=== PATIENT | male | born 1955 | race Caucasian/White ===

== ENCOUNTER 2025-01-18 08:58 | Emergency (ER) | payer SELFPAY ==
--- NOTE | 2025-01-18 | CT_ITS ---
The [address] [address] Patient Name: TERRY MERIDA MRN: [id number] date: 1955 Sex: M Assigned Patient Location: ER Current Patient Location: Accession/Order Number: [id number] Exam Date: 01/18/2025 09:35 Report Date: 01/18/2025 09:48 At the request of: BALDEMAR ELIZONDO MD Procedure: CT facial bones wo con CLINICAL DATA: Crush injury at work CT BRAIN WITHOUT CONTRAST: COMPARISON: None TECHNIQUE: Contiguous axial unenhanced images were obtained through the brain. This CT exam was performed using one or more following dose reduction techniques: Automated exposure control, adjustment of the mA and/or kV according to patient size, or use of iterative reconstruction technique. FINDINGS: Patient is slightly angled within the gantry. There is mild cortical atrophy. The ventricles are within normal limits for size and position. There are no significant areas of abnormal attenuation. There is no hemorrhage, mass effect or extra-axial collections. The calvarium is intact. There is left maxillary mucosal thickening. The remaining imaged paranasal sinuses and mastoid air cells are clear. CT/CT facial bones wo con IMPRESSION: NO ACUTE INTRACRANIAL TRAUMA. MAXILLOFACIAL CT WITHOUT CONTRAST: COMPARISON: None TECHNIQUE: Spiral axial unenhanced images were obtained through the facial bones. Coronal and sagittal reconstructions were also reviewed. This CT exam was performed using one or more following dose reduction techniques: Automated exposure control, adjustment of the mA and/or kV according to patient size, or use of iterative reconstruction technique. FINDINGS: Patient is angled in the gantry. The mandible is edentulous. There is a transverse fracture at the anterior mandible on the left. There may be minimal comminution however there are is no significant displacement. The temporomandibular joints, as visualized appear intact though there is mild degenerative change. No other definite acute facial bone fractures are identified within limits of positioning. There is mucosal thickening at the maxillary sinuses, greater on the left. The remaining paranasal sinuses are clear. No fluid levels are seen. No mastoid disease is visualized. The intraorbital contents are unremarkable. There is poor dentition with periapical lucency around the upper molars on the left along with caries. IMPRESSION: SLIGHTLY LIMITED EVALUATION DUE TO POSITIONING. LEFT MANDIBLE FRACTURE Impression dictated by: Jo-Ann Delcid M.D. 01/18/2025 9:48 AM Dictation Location: [place] [address] Electronically authenticated by: [id number] Y Date: 01/18/2025 09:48
--- NOTE | 2025-01-18 | CT_ITS ---
The [address] [address] Patient Name: TERRY MERIDA MRN: [id number] date: 1955 Sex: M Assigned Patient Location: ER Current Patient Location: Accession/Order Number: [id number] Exam Date: 01/18/2025 09:48 Report Date: 01/18/2025 10:05 At the request of: BALDEMAR ELIZONDO MD Procedure: CT cervical spine wo con CT CERVICAL SPINE WITHOUT CONTRAST WITH 3D RECONSTRUCTIONS: CLINICAL HISTORY: Crush injury at work COMPARISON: None TECHNIQUE: Spiral axial unenhanced images were obtained through the cervical spine. Sagittal, coronal and 3D volume-rendered reconstructions were also reviewed. This CT exam was performed using one or more following dose reduction techniques: Automated exposure control, adjustment of the mA and/or kV according to patient size, or use of iterative reconstruction technique. FINDINGS: Patient is angled in the gantry, limiting assessment. There is no definite acute compression fracture. There does appear to be fracture at the left transverse process of C7. There is widening of the disc space anteriorly at C6-7 and this could indicate ligamentous injury. Bilateral foraminal impingement is present at that level. There is no other disproportionate disc space narrowing. There is endplate spurring and facet hypertrophy. The atlantoaxial relationship is maintained. There are at least first and second proximal right rib fractures. No prevertebral soft tissue swelling is seen. Carotid artery plaque is noted. No pneumothorax is identified at the upper lungs. Minor apical capping is seen on the right. CT/CT cervical spine wo con IMPRESSION: POOR POSITIONING, LIMITING ASSESSMENT. LEFT C7 TRANSVERSE PROCESS FRACTURE. WIDENING OF THE DISC SPACE ANTERIORLY AT C6-7. FOLLOW-UP IS RECOMMENDED TO EXCLUDE ANY POSSIBILITY OF LIGAMENTOUS INJURY. RIGHT UPPER RIB FRACTURES. Impression dictated by: Jo-Ann Delcid M.D. 01/18/2025 10:05 AM Dictation Location: [place] [address] Electronically authenticated by: [id number] Y Date: 01/18/2025 10:05
--- NOTE | 2025-01-18 | XR_ITS ---
The [address] [address] Patient Name: TERRY MERIDA MRN: [id number] date: 1955 Sex: M Assigned Patient Location: ER Current Patient Location: ED.MAIN Accession/Order Number: [id number] Exam Date: 01/18/2025 09:30 Report Date: 01/18/2025 09:35 At the request of: BALDEMAR ELIZONDO MD Procedure: XR pelvis 1-2V CLINICAL DATA: Crush injury at work PORTABLE AP RECUMBENT CHEST 0848 hours COMPARISON: None There is artifact from a backboard. There is also shallow inspiration. Patient is slightly rotated. The heart appears prominent. No focal consolidation is seen. There is no obvious effusion or pneumothorax. The visualized bony structures are intact. XR/XR pelvis 1-2V IMPRESSION: SLIGHT LIMITED STUDY, WITHOUT DEFINITE ACUTE FINDINGS. PORTABLE AP PELVIS COMPARISON: None There is artifact from a backboard. There are bilateral superior and inferior pubic rami fractures with some comminution and mild displacement. There are also fractures involving the iliac crests on both sides. The proximal imaged femora are intact. There is no dislocation at the hips. The hip joint spaces are maintained and there is hypertrophy, left worse than right. IMPRESSION: BILATERAL ILIAC AND PUBIC RAMI FRACTURES. FOLLOW-UP CT IS SUGGESTED TO FULLY ASSESS THE EXTENT OF THE FRACTURES. Impression dictated by: Jo-Ann Delcid M.D. 01/18/2025 9:35 AM Dictation Location: [place] [address] Electronically authenticated by: [id number] Y Date: 01/18/2025 09:35
--- NOTE | 2025-01-18 | XR_ITS ---
The [address] [address] Patient Name: TERRY MERIDA MRN: [id number] date: 1955 Sex: M Assigned Patient Location: ER Current Patient Location: ED.MAIN Accession/Order Number: [id number] Exam Date: 01/18/2025 09:30 Report Date: 01/18/2025 09:35 At the request of: BALDEMAR ELIZONDO MD Procedure: XR pelvis 1-2V CLINICAL DATA: Crush injury at work PORTABLE AP RECUMBENT CHEST 0848 hours COMPARISON: None There is artifact from a backboard. There is also shallow inspiration. Patient is slightly rotated. The heart appears prominent. No focal consolidation is seen. There is no obvious effusion or pneumothorax. The visualized bony structures are intact. XR/XR chest 1V IMPRESSION: SLIGHT LIMITED STUDY, WITHOUT DEFINITE ACUTE FINDINGS. PORTABLE AP PELVIS COMPARISON: None There is artifact from a backboard. There are bilateral superior and inferior pubic rami fractures with some comminution and mild displacement. There are also fractures involving the iliac crests on both sides. The proximal imaged femora are intact. There is no dislocation at the hips. The hip joint spaces are maintained and there is hypertrophy, left worse than right. IMPRESSION: BILATERAL ILIAC AND PUBIC RAMI FRACTURES. FOLLOW-UP CT IS SUGGESTED TO FULLY ASSESS THE EXTENT OF THE FRACTURES. Impression dictated by: Jo-Ann Delcid M.D. 01/18/2025 9:35 AM Dictation Location: [place] [address] Electronically authenticated by: [id number] Y Date: 01/18/2025 09:35
--- NOTE | 2025-01-18 | CT_ITS ---
The [address] [address] Patient Name: TERRY MERIDA MRN: [id number] date: 1955 Sex: M Assigned Patient Location: ER Current Patient Location: Accession/Order Number: [id number] Exam Date: 01/18/2025 09:35 Report Date: 01/18/2025 09:48 At the request of: BALDEMAR ELIZONDO MD Procedure: CT facial bones wo con CLINICAL DATA: Crush injury at work CT BRAIN WITHOUT CONTRAST: COMPARISON: None TECHNIQUE: Contiguous axial unenhanced images were obtained through the brain. This CT exam was performed using one or more following dose reduction techniques: Automated exposure control, adjustment of the mA and/or kV according to patient size, or use of iterative reconstruction technique. FINDINGS: Patient is slightly angled within the gantry. There is mild cortical atrophy. The ventricles are within normal limits for size and position. There are no significant areas of abnormal attenuation. There is no hemorrhage, mass effect or extra-axial collections. The calvarium is intact. There is left maxillary mucosal thickening. The remaining imaged paranasal sinuses and mastoid air cells are clear. CT/CT head/brain wo con IMPRESSION: NO ACUTE INTRACRANIAL TRAUMA. MAXILLOFACIAL CT WITHOUT CONTRAST: COMPARISON: None TECHNIQUE: Spiral axial unenhanced images were obtained through the facial bones. Coronal and sagittal reconstructions were also reviewed. This CT exam was performed using one or more following dose reduction techniques: Automated exposure control, adjustment of the mA and/or kV according to patient size, or use of iterative reconstruction technique. FINDINGS: Patient is angled in the gantry. The mandible is edentulous. There is a transverse fracture at the anterior mandible on the left. There may be minimal comminution however there are is no significant displacement. The temporomandibular joints, as visualized appear intact though there is mild degenerative change. No other definite acute facial bone fractures are identified within limits of positioning. There is mucosal thickening at the maxillary sinuses, greater on the left. The remaining paranasal sinuses are clear. No fluid levels are seen. No mastoid disease is visualized. The intraorbital contents are unremarkable. There is poor dentition with periapical lucency around the upper molars on the left along with caries. IMPRESSION: SLIGHTLY LIMITED EVALUATION DUE TO POSITIONING. LEFT MANDIBLE FRACTURE Impression dictated by: Jo-Ann Delcid M.D. 01/18/2025 9:48 AM Dictation Location: [place] [address] Electronically authenticated by: [id number] Y Date: 01/18/2025 09:48
[2025-01-18 08:58] VITALS: BP 115/75; PULSE 85; O2SAT 95; BMI 64.3
[2025-01-18 09:06] VITALS: O2SAT 96
--- NOTE | 2025-01-18 09:07 | PC.NURSE ---
blood coming from left ear, pt alert with some short term memory problems reported by EMS. Pt to be transferred Via life flight
[2025-01-18] MEDS: MORPHINE SULFATE 4 MG/ML VIAL IV (09:16)
[2025-01-18] MEDS: ONDANSETRON PF 4 MG/2 ML VIAL IV (09:16)
[2025-01-18 09:19] VITALS: BP 125/78
[2025-01-18 09:24] VITALS: BP 114/74
[2025-01-18] MEDS: CEFAZOLIN SODIUM/DEXTROSE,ISO 1 GM/50 ML PREMIX IV (09:27)
--- NOTE | 2025-01-18 09:35 | ED.GENADUL1 ---
HPI HPI - General Adult General Chief complaint: Trauma Stated complaint: INJURY Time Seen by Provider: 01/18/25 09:20 Source: patient Mode of arrival: ambulance History of Present Illness HPI narrative: 70-year-old male presents for trauma event. Most of the history is obtained from the paramedics, some from the patient. 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 He was found laying on the ground but bystanders reported he lost consciousness. The patient is complaining of pain in his lower back and the left side of his face. This occurred immediately before coming into the emergency department. It is unclear when his last tetanus dose was but this was updated today. He was transported here on a long backboard and c-collar by paramedics. He was noted to be somewhat diaphoretic. He describes his pain is severe. Related Data Allergies Allergy/AdvReac Type Severity Reaction Status Date / Time Unable to Assess Allergy Verified 01/18/25 09:00 Review of Systems ROS Narrative Not obtainable, acuity of situation Exam Narrative Exam Narrative: Nurses note and vital signs reviewed and patient is not hypoxic. General: The patient is on a long backboard and c-collar. He is answering questions and following all commands Skin: Warm, diaphoretic, mild pallor noted. He has superficial abrasion to his right knee. He has speckled indentations on the left side of his chest consistent with laying on gravel. Head: He has swelling and large abrasion to the left side of his face partially covered by the c-collar and tape. He has blood at his left ear but it is not clear whether this is coming from the wound on his face or from the ear itself. Eye: Normal conjunctiva, no drainage, EOMI. PERRL Ears, Nose, Mouth, and Throat: oral mucosa is moist. Nares patent. Cardiovascular: Regular Rate and Rhythm, not tachycardic Respiratory: Patient is in no distress, no accessory muscle use, lungs are clear to auscultation, no wheezing, rales or rhonchi. Breath sounds are equal bilaterally. He has no crepitus on palpation nor any pain on palpation of the chest wall. Back: Not examined, on long backboard and c-collar GI: No distention or tenderness on palpation Musculoskeletal: He is moving all 4 extremities to command. Initially he did not seem to have any pain on rocking of his pelvis Neurological: A&O x4, normal speech Psychiatric: Cooperative Constitutional Vital Signs, click to edit/add: Last Vital Signs Pulse 85 01/18/25 08:58 Resp 20 01/18/25 08:58 BP 114/74 01/18/25 09:24 Pulse Ox 96 01/18/25 09:06 O2 Del Method Room Air 01/18/25 09:06 Course Vital Signs Vital signs: Vital Signs Pulse Rate 85 01/18/25 08:58 Respiratory Rate 20 01/18/25 08:58 Blood Pressure 115/75 01/18/25 08:58 Pulse Oximetry 95 01/18/25 08:58 Oxygen Delivery Method Room Air 01/18/25 08:58 Pulse Rate 85 01/18/25 08:58 Respiratory Rate 20 01/18/25 08:58 Blood Pressure 114/74 01/18/25 09:24 Pulse Oximetry 96 01/18/25 09:06 Oxygen Delivery Method Room Air 01/18/25 09:06 Medical Decision Making MDM Narrative Medical decision making narrative: Paramedics at the scene had requested [facility] and instead of [facility] meeting them at the scene [facility] crew came here and landed on our helipad. The patient arrived here a short amount of time before the life flight crew landed. Portable chest x-ray was performed which on my interpretation showed no acute findings. Portable pelvis x-ray was performed which when I had a chance to review it shows right inferior and superior pelvic ramus fractures and probable left inferior pubic ramus fracture. The patient continued to complain of low back pain and he will very likely need additional studies to further explore his injuries. He was taken to the CT suite to perform studies. CT of the brain, C-spine, and facial bones were performed and the initial interpretation by me shows a left mandible fracture. He remained hemodynamically stable. Tetanus status was updated and he was ordered IV Ancef. I spoke to Dr. Seaman at [facility], trauma surgeon, and he accepts the patient. The patient is stable and agreeable for transfer. Differential Diagnosis Differential Diagnosis: Intracranial hemorrhage, facial fractures, C-spine fracture, pelvic fx Imaging Data Chest x-ray, CT C-spine, CT brain, CT facial bones, pelvic x-ray: Radiologist's impression: ITS Impressions Chest X-Ray 01/18/25 00:00 IMPRESSION: SLIGHT LIMITED STUDY, WITHOUT DEFINITE ACUTE FINDINGS. PORTABLE AP PELVIS COMPARISON: None There is artifact from a backboard. There are bilateral superior and inferior pubic rami fractures with some comminution and mild displacement. There are also fractures involving the iliac crests on both sides. The proximal imaged femora are intact. There is no dislocation at the hips. The hip joint spaces are maintained and there is hypertrophy, left worse than right. IMPRESSION: BILATERAL ILIAC AND PUBIC RAMI FRACTURES. FOLLOW-UP CT IS SUGGESTED TO FULLY ASSESS THE EXTENT OF THE FRACTURES. Impression dictated by: Jo-Ann Delcid M.D. 01/18/2025 9:35 AM Dictation Location: [employer] Electronically authenticated by: [id number] Y Date: 01/18/2025 09:35 Pelvis X-Ray 01/18/25 00:00 IMPRESSION: SLIGHT LIMITED STUDY, WITHOUT DEFINITE ACUTE FINDINGS. PORTABLE AP PELVIS COMPARISON: None There is artifact from a backboard. There are bilateral superior and inferior pubic rami fractures with some comminution and mild displacement. There are also fractures involving the iliac crests on both sides. The proximal imaged femora are intact. There is no dislocation at the hips. The hip joint spaces are maintained and there is hypertrophy, left worse than right. IMPRESSION: BILATERAL ILIAC AND PUBIC RAMI FRACTURES. FOLLOW-UP CT IS SUGGESTED TO FULLY ASSESS THE EXTENT OF THE FRACTURES. Impression dictated by: Jo-Ann Delcid M.D. 01/18/2025 9:35 AM Dictation Location: [employer] Electronically authenticated by: [id number] Y Date: 01/18/2025 09:35 CT facial bones on my interpretation shows mandible fracture on the left. CT brain on my interpretation shows no acute findings Critical Care Time Critical Care Time Critical Care Time: Yes Total Critical Care Time: 50 Attestation: Due to the high probability of sudden and clinically significant deterioration in the patient's condition he/she required the highest level of my preparedness to intervene urgently I provided critical care time including documentation time, medication orders and management, reevaluation, vital sign assessment, ordering and reviewing of lab tests, ordering and reviewing of x-ray studies, and admission orders. Aggregate critical care time is 50 minutes including only time during which I was engaged in work directly related to his/her care and did not include time spent treating other patients simultaneously. Discharge Plan Discharge Chief Complaint: Trauma Clinical Impression: Fracture of mandible, Pelvic fracture Patient Disposition: [facility] Time of Disposition Decision: 09:33 Discharge Location: [facility] Condition: Fair Mode of Transportation: [facility]
== END 2025-01-18 09:33 | disposition short-term general hospital (02) ==
PROVIDERS: Emergency Provider Emergency Medicine
DX: S02.609A Fracture of mandible, unspecified, initial encounter for closed fracture (principal); S12.600A Unspecified displaced fracture of seventh cervical vertebra, initial encounter for closed fracture; S22.41XA Multiple fractures of ribs, right side, initial encounter for closed fracture; S32.592A Other specified fracture of left pubis, initial encounter for closed fracture; S32.591A Other specified fracture of right pubis, initial encounter for closed fracture; W31.82XA Contact with other commercial machinery, initial encounter; Z23 Encounter for immunization; S80.211A Abrasion, right knee, initial encounter
CPT/HCPCS: 70450; 70486; 71045; 72125; 72170; 90715; 96374; 96375; 99285; J0690; J2270; J2405

== ENCOUNTER 2025-06-03 23:07 | Observation (INO) | payer MEDICARE, SELFPAY ==
--- OUTSIDE RECORDS SUMMARY | 2025-05-20 07:45 | XMS_ITS ---
Author Organization [facility] Address [address] [place] [address] [address] [place] [address] Care Team Providers Care Head Wood Grinder Name Role Phone SHIRA HAYES Unavailable [phone] RUIZ ROQUE Unavailable [phone] REASON FOR VISIT Respiratory Failure, Tracheostomy, Hx Aspiration PNA Problems Problem Type SNOMED Code ICD Code Onset Dates Problem Status W/U Status Risk Notes Problem Chronic respiratory failure (398 43355) Chronic respiratory failure with hypoxia (J96.11) ActiveconfirmedProblemTracheostomy present (473859469)Tracheostomy status (Z93.0)Activeconfirmed Encounters Encounter Location Date Provider Diagnosis [address] [place], [place] [id number] 05/20/2025 RUIZ ROQUE Chronic respiratory failure with hypoxia J96.11 ; Acute respiratory failure with hypoxia J96.01 and Tracheostomy status Z93.0 Assessments Encounter Date Diagnosis (ICD Code) Assessment Notes Treatment Notes Treatment Clinical Notes Section Notes 05/20/2025 Chronic respiratory failure with hypoxia (ICD-10 - J96.11) 05/20/2025ute respiratory failure with hypoxia (ICD-10 - J96.01)05/20/2025 Tracheostomy status (ICD-10 - Z93.0)05/20/2025OtherSeen in collaboration and discussed plan of care with Dr. Shira Hayes Plan Of Treatment Treatment Notes Assessment Notes Other Seen in collaboratio n and discussed plan of care with Dr. Shira Hayes Next Appt Details Follow Up: 2 - 3 Days, Reaso n: Progress Notes * COLEEN FarhanDOB:1955 ( 70 yo M)Acc No.[id number]:05/20/2025 Progress Notes Patient: Farhan WESTFALL Provider:?RUIZ ROQUE NPDOB:1955???Age: 70 Y???Sex:MaleDate:05/20/2025Phone:Address:[address] [facility] [address], [place], [id number] Subjective: * Chief Complaints: * R espiratory FailureTracheostomyHx Aspiration PNA * HPI: ???Constitutional:? Continuing to see patient for pulmonary management. Performed bedside rounds with the respiratory therapist today. Discussed the patients pulmonary status and current orders. Discussed concerns or needs by RT. Continue the orders at this time. Patientis resting in bed and remains on CATC. Thick green secretions noted. Will obtain sputum.? Impression:? Acute on Chronic Hypoxic Respiratory Failure Tracheostomy Status 2/2 Above Multiple Episodes of Aspiration Pneumonia? Multiple Unstaged Wounds; Post Debridements? Bone Cultures 03/25/2025 Positive for VRE and Leia Auris Hx of STEMI with Cardiac Arrest Hx of Atrial Fibrillation with RVR Hx of Right Pneumothorax? Recurrent Right Pleural Effusion; Post Thoracentesis? Acute on Chronic Diastolic Heart Failure, Improving Multiple Known Fractures Hx of IPH and SAH CAD with Distal RCA Occlusion and Severe Stenosis of LAD; conservative management? MDRO Pseudomonas in sputum? Plan: Obtain sputum? Continue CATC 28% FiO2 with PMV as tolerated DuoNeb Q6H PRN Mucomyst PRN Levaquin 750 mg a day x 7 days for MDRO Pseudomonas in sputum, Amoxicillin 500 mg po TID for Enterococcus faecalis in urine, Tobramycin for MDRO Pseudomonas in sputum Lasix BID per Primary 6 Shiley Flex Uncuffed; placed 05/06/2025 Trach care per facility protocol RT to follow On Eliquis? Will continue to monitor pulmonary status. * ROS: ???All Other Systems:?Review of Systems (ROS)?All others negative except those mentioned in HPI, See HPI for details.? * Medical History: * Surgical History: * Hospitalization/Major Diagno stic Procedure: * Medications: Objective: * Vitals: * Examination: ???General Examination: ?GENERAL APPEARANCE:?in no acute distress, well developed, well nourished.?ORAL CAVITY:?mucosa moist.?THROAT:?normal.?NECK/THYROID:?neck supple, full range of motion, no cervical lymphadenopathy.?SKIN:?no suspicious lesions, warm and dry.?HEART:?no murmurs, regular rate and rhythm, S1, S2 normal. ?LUNGS:?clear to auscultation bilaterally.?EXTREMITIES:?no clubbing, cyanosis, or edema.?? ? Assessment: * Assessment: 1.?Chronic respiratory failure with hypoxia - J96.11 (Primary)???2.?Acute r espiratory failure with hypoxia - J96.01???3.?Tracheostomy status - Z93.0?& #160;? Plan: * Treatment: Notes: Seen in collaboration and discussed plan of care with Dr. Shira Hayes?? * Procedure Codes: 9 9308 NURSING FAC CARE SUBSEQ * Follow Up: 2 - 3 Days * * Sign off status: Completed true * Appointment Provider: Vilma ROQUE NP Date: Generated for Printing/Faxing/eTransmitting on:?06/03/2025 11:18 PM EDT History and Physical Notes * HPI (History of Present Illness) CategorySub-CategoryDetailNotesCategory NotesConstitutional Continuing to see patient for pulmonary management. Performed bedside rounds with the respiratory therapist today. Discussed the patients pulmonary status and current orders. Discussed concerns or needs by RT. Continue the orders at this time. Patientis resting in bed and remains on CATC. Thick green secretions noted. Will obtain sputum. 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 Occlusion and Severe Stenosis of LAD; conservative management MDRO Pseudomonas in sputum Plan: Obtain sputum Continue CATC 28% FiO2 with PMV as tolerated DuoNeb Q6H PRN Mucomyst PRN Levaquin 750 mg a day x 7 days for MDRO Pseudomonas in sputum, Amoxicillin 500 mg po TID for Enterococcus faecalis in urine, Tobramycin for MDRO Pseudomonas in sputum Lasix BID per Primary 6 Shiley Flex Uncuffed; placed 05/06/2025 Trach care per facility protocol RT to follow On Eliquis Will continue to monitor pulmonary status Examination CategorySub-CategoryDetailNotesCategory NotesGeneral ExaminationGENERAL APPEARANCE:in no acute distress, well developed, well nourishedTHROAT:normal NECK/THYROID:neck supple, full range of motion, no cervical lymphadenopathy HEART:no murmurs, regular rate and rhythm, S1, S2 normalLUNGS:clear to auscultation bilaterallySKIN:no suspicious lesions, warm and dryEXTREMITIES:no clubbing, cyanosis, or edemaORAL CAVITY:mucosa moist
--- OUTSIDE RECORDS SUMMARY | 2025-05-25 07:00 | XMS_ITS ---
Author Organization [facility] Address [address] [place] [address] [address] [place] [address] Care Team Providers Care Engineering Operator Name Role Phone SHIRA HAYES Unavailable [phone] RAMESH ANITA Unavailable [phone] REASON FOR VISIT Respiratory Failure, Tracheostomy, Hx Aspiration PNA Problems Problem Type SNOMED Code ICD Code Onset Dates Problem Status W/U Status Risk Notes Problem Vkfjx-jk-kndluuz hyp oxemic respiratory failure (disorder) (66989383675614310) Acute on chronic hypoxic respiratory failure (J96.21) ActiveconfirmedProblemAcute on chronic diastolic heart failure (225688494)Acute on chronic diastolic (congestive) heart failure (I50.33)Activeconfirmed Encounters Encounter Location Date Provider Diagnosis [address] [place], [place] [phone] 05/25/2025 ANITA ROE Tracheostomy status Z93.0 ; Acute on chronic hypoxic respiratory failure J96.21 ; Aspiration pneumonia, unspecified aspiration pneumonia type, unspecified laterality, unspecified part of lung J69.0 ; Pleural effusion J90 and Acute on chronic diastolic (congestive) heart failure I50.33 Assessments Encounter Date Diagnosis (ICD Code) Assessment Notes Treatment Notes Treatment Clinical Notes Section Notes 05/25/2025 Tracheostomy status (ICD-10 - Z9 3.0) 5Acute on chronic hypoxic respiratory failure (ICD-10 - J96.21) 05/25/2025spiration pneumonia, unspecified aspiration pneumonia type, unspecified laterality, unspecified part of lung (ICD-10 - J69.0)05/25/2025 Pleural effusion (ICD-10 - J90)5Acute on chronic diastolic (congestive) heart failure (ICD-10 - I50.33)05/25/2025OtherSeen in collaboration and discussed plan of care with Dr. Shira Hayes Plan Of Treatment Treatment Notes Assessment Notes Other Seen in collaboratio n and discussed plan of care with Dr. Shira Hayes Next Appt Details Follow Up: 2 - 3 Days, Reaso n: Progress Notes * Farhan HORNEDOB:1955 ( 70 yo M)Acc No.[id number]:05/25/2025 Progress Notes Patient: Farhan WESTFALL Provider:?Anita Roe NPDOB:1955???Age:70 Y???Sex:MaleDate:05/25/2025Phone:Address:[address] [place] [address] [address] [facility], [place], [phone] Subjective: * Chief Complaints: * R espiratory FailureTracheostomyHx Aspiration PNA * HPI: ???Follow Up:? Continuing to see patient for pulmonary management. Discussed residents pulmonary status with the respiratory therapist in great detail. Reviewed orders and plan of care. Continue the same for now. Please let me know of any acute changes. He has been tolerating PMV during the day with CATC. He is free from distress. Sputum pending. CXR from 05/20 showed no acute findings.? Impression:? Acute on Chronic Hypoxic Respiratory Failure [...] conservative management? MDRO Pseudomonas in sputum? Plan: Sputum pending? Continue CATC 28% FiO2 with PMV as [...] cyanosis, or edema.?? ? Assessment: * Assessment: 1.?Acute on chronic hypoxic respiratory failure - J96.21 (Primary)???2.?Tra cheostomy status - Z93.0???3.?Aspiration pneumonia, unspecified aspiration pneum onia type, unspecified laterality, unspecified part of lung - J69.0???4.?Pleural effusion - J90???5.?Acute on chronic diastolic (congestive) heart failure - I50 .33??? Plan: * Treatment: Notes: Seen in collaboration and discussed plan of care with Dr. Shira Hayes?? * Procedure Codes: * Follow Up: 2 - 3 Days * * Sign off status: Completed true * Appointment Provider: Chavo Roe NP Date: Generated for Printing/Faxing/eTransmitting on:?06/03/2025 11:19 PM EDT History and Physical Notes * HPI (History of Present Illness) CategorySub-CategoryDetailNotesCategory NotesFollow Up Continuing to see patient for pulmonary management. Discussed residents pulmonary status with the respiratory therapist in great detail. Reviewed orders and plan of care. Continue the same for now. Please let me know of any acute changes. He has been tolerating PMV during the day with CATC. He is free from distress. Sputum pending. CXR from 05/20 showed no acute findings. Impression: Acute on Chronic Hypoxic Respiratory Failure [...] conservative management MDRO Pseudomonas in sputum Plan: Sputum pending Continue CATC 28% FiO2 with PMV as [...]
--- OUTSIDE RECORDS SUMMARY | 2025-05-27 07:00 | XMS_ITS ---
Author Organization [facility] Address [address] [place] [address] [address] [place] [address] Care Team Providers Care Load Dispatcher Local Name Role Phone SHIRA HAYES Unavailable [phone] SELLROLARUIZ Unavailable [phone] REASON FOR VISIT Respiratory Failure, Tracheostomy, Hx Aspiration PNA Encounters Encounter Location Date Provider Diagnosis [address] [place], [place] [phone] 05/27/2025 RUIZ SELL Tracheostomy status Z93.0 ; Acute on chronic hypoxic respiratory failure J96.21 ; Aspiration pneumonia, unspecified aspiration pneumonia type, unspecified laterality, unspecified part of lung J69.0 ; Pleural effusion J90 and Acute on chronic diastolic (congestive) heart failure I50.33 Assessments Encounter Date Diagnosis (ICD Code) Assessment Notes Treatment Notes Treatment Clinical Notes Section Notes 05/27/2025 Tracheostomy status (ICD-10 - Z9 3.0) 5Acute on chronic hypoxic respiratory failure (ICD-10 - J96.21) 05/27/2025spiration pneumonia, unspecified aspiration pneumonia type, unspecified laterality, unspecified part of lung (ICD-10 - J69.0)05/27/2025 Pleural effusion (ICD-10 - J90)5Acute on chronic diastolic (congestive) heart failure (ICD-10 - I50.33)05/27/2025OtherSeen in collaboration and discussed plan of care with Dr. Shira Hayes Plan Of Treatment Treatment Notes Assessment Notes Other Seen in collaboratio n and discussed plan of care with Dr. Shira Hayes Next Appt Details Follow Up: 2 - 3 Days, Reaso n: Progress Notes * Farhan HORNEDOB:1955 ( 70 yo M)Acc No.[id number]:05/27/2025 Progress Notes Patient: Farhan WESTFALL Provider:?RUIZ ROQUE, NPDOB:1955???Age: 70 Y???Sex:MaleDate:05/27/2025Phone:Address:[address] [place] [address] [address], [facility] [phone] Subjective: * Chief Complaints: * R espiratory FailureTracheostomyHx Aspiration PNA * HPI: ???Constitutional:? Continuing to see patient for pulmonary management. Bedside rounds completed with the respiratory therapist. We reviewed patients pulmonary status, current orders, and plan of care. Resident is resting in bed. On CATC with no issues. Denies needs or concerns today. Started on Cipro for moderate growth pseudomonas.? Impression:? Acute on Chronic Hypoxic Respiratory Failure [...] of LAD; conservative management? MDRO Pseudomonas in sputum, tx with Cipro Plan: On Cipro for sputum Continue CATC 28% FiO2 with PMV [...] ROQUE NP Date: Generated for Printing/Faxing/eTransmitting on:?06/03/2025 11:19 PM EDT History and Physical Notes * HPI (History of Present Illness) CategorySub-CategoryDetailNotesCategory NotesConstitutional Continuing to see patient for pulmonary management. Bedside rounds completed with the respiratory therapist. We reviewed patients pulmonary status, current orders, and plan of care. Resident is resting in bed. On CATC with no issues. Denies needs or concerns today. Started on Cipro for moderate growth pseudomonas. Impression: Acute on Chronic Hypoxic Respiratory Failure [...] of LAD; conservative management MDRO Pseudomonas in sputum, tx with Cipro Plan: On Cipro for sputum Continue CATC 28% FiO2 with PMV [...]
--- OUTSIDE RECORDS SUMMARY | 2025-05-30 06:30 | XMS_ITS ---
Author Organization [facility] Address [address] [place] [address] Care Team Providers Care Welfare Officer Name Role Phone SHIRA HAYES Unavailable [phone] REASON FOR VISIT Respiratory Failure, Tracheostomy, Hx Aspiration PNA Encounters Encounter Location Date Provider Diagnosis [place] [address] [facility] [place] [address] [place], [place] [phone] 05/30/2025 SHIRA HAYES Tracheostomy status Z93.0 ; Acute on chronic hypoxic respiratory failure J96.21 ; Aspiration pneumonia, unspecified aspiration pneumonia type, unspecified laterality, unspecified part of lung J69.0 ; Pleural effusion J90 and Acute on chronic diastolic (congestive) heart failure I50.33 Assessments Encounter Date Diagnosis (ICD Code) Assessment Notes Treatment Notes Treatment Clinical Notes Section Notes 05/30/2025 Tracheostomy status (ICD-10 - Z9 3.0) 5Acute on chronic hypoxic respiratory failure (ICD-10 - J96.21) 05/30/2025spiration pneumonia, unspecified aspiration pneumonia type, unspecified laterality, unspecified part of lung (ICD-10 - J69.0)05/30/2025 Pleural effusion (ICD-10 - J90)5Acute on chronic diastolic (congestive) heart failure (ICD-10 - I50.33) Plan Of Treatment Next Appt Details Follow Up: 2 - 3 Days, Reaso n: Provider Name:RUIZ ROQUE, 06/03/2025 11:00:00 AM, [address] [facility], [address], [place], [place], [phone], Progress Notes * Farhan HORNEDOB:1955 ( 70 yo M)Acc No.[id number]:05/30/2025 Progress Notes Patient: Farhan WESTFALL :?Shira Hayes, MDDOB:1955???Age:70 Y???Sex: MaleDate:05/30/2025Phone:Address:[address], [place], [phone] Subjective: * Chief Complaints: * 1 . Respiratory Failure. 2. Tracheostomy. 3. Hx Aspiration PNA. * HPI: ???Constitutional:? Continuing to see patient for pulmonary management. I evaluated the patient at bedside. Stable pulmonary status. No changes in physical examination. Discussed pulmonary status with nursing and RT. Continue current orders. Impression:? Acute on Chronic Hypoxic Respiratory Failure [...] as tolerated DuoNeb Q6H PRN Mucomyst PRN Lasix BID per Primary 6 Shiley Flex Uncuffed; placed 05/06/2025 Trach care per facility protocol RT to follow On Eliquis? Will continue to monitor pulmonary status. * ROS: ???All Other Systems:?Review of Systems (ROS)?All others negative except those mentioned in HPI, See HPI for details.? * Medical History: Objective: * Vitals: * Examination: ???General Examination: [...] failure - I50 .33??? Plan: * Treatment: * Follow Up: 2 - 3 Days * * Electronic signature of SHIRA HAYES MD on 06/03/2025 at 08:09 AM EDTSign off status: Pending * Provider: Berny Hayes MD Date: 1 Generated for Printing/Faxing/eTransmitting on:?06/03/2025 08:09 AM EDT History and Physical Notes * HPI (History of Present Illness) CategorySub-CategoryDetailNotesCategory NotesConstitutional Continuing to see patient for pulmonary management. I evaluated the patient at bedside. Stable pulmonary status. No changes in physical examination. Discussed pulmonary status with nursing and RT. Continue current orders. Impression: Acute on Chronic Hypoxic Respiratory Failure [...] as tolerated DuoNeb Q6H PRN Mucomyst PRN Lasix BID per Primary 6 Shiley Flex [...]
--- OUTSIDE RECORDS SUMMARY | 2025-06-01 07:00 | XMS_ITS ---
Author Organization [facility] Address [address] [place] [address] [address] [place] [address] Care Team Providers Care Assistant Professor Of Physics Name Role Phone SHIRA HAYES Unavailable [phone] ANITA ROE Unavailable [phone] REASON FOR VISIT Respiratory Failure, Tracheostomy, Hx Aspiration PNA Encounters Encounter Location Date Provider Diagnosis [address] [place], [place] [phone] 06/01/2025 ANITA ROE Tracheostomy status Z93.0 ; Acute on chronic hypoxic respiratory failure J96.21 ; Aspiration pneumonia, unspecified aspiration pneumonia type, unspecified laterality, unspecified part of lung J69.0 ; Pleural effusion J90 and Acute on chronic diastolic (congestive) heart failure I50.33 Assessments Encounter Date Diagnosis (ICD Code) Assessment Notes Treatment Notes Treatment Clinical Notes Section Notes 06/01/2025 Tracheostomy status (ICD-10 - Z9 3.0) 5Acute on chronic hypoxic respiratory failure (ICD-10 - J96.21) 06/01/2025spiration pneumonia, unspecified aspiration pneumonia type, unspecified laterality, unspecified part of lung (ICD-10 - J69.0)06/01/2025 Pleural effusion (ICD-10 - J90)5Acute on chronic diastolic (congestive) heart failure (ICD-10 - I50.33)06/01/2025OtherSeen in collaboration and discussed plan of care with Dr. Shira Hayes Plan Of Treatment Treatment Notes Assessment Notes Other Seen in collaboratio n and discussed plan of care with Dr. Shira Hayes Next Appt Details Follow Up: 2 - 3 Days, Reaso n: Progress Notes * Farhan HORNEDOB:1955 ( 70 yo M)Acc No.[id number]:06/01/2025 Progress Notes Patient: Farhan WESTFALL Provider:?Anita Roe NPDOB:1955???Age:70 Y???Sex:MaleDate:06/01/2025Phone:Address:[address] [place] [address] [address] [facility] [phone] Subjective: * Chief Complaints: * R espiratory FailureTracheostomyHx Aspiration PNA * HPI: ???Constitutional:? Continuing to see patient for pulmonary management. Evaluated patient in the facility today. Reviewed chart, vital signs, and any new orders. Discussedpulmonary status with the nurse and RT. Physical examination unchanged. No new pulmonary concerns. Continue current orders as written. He remains resting in bed and remains on CATC with PMV. No RT con cerns.? Impression:? Acute on Chronic Hypoxic Respiratory Failure [...] Continuing to see patient for pulmonary management. Evaluated patient in the facility today. Reviewed chart, vital signs, and any new orders. Discussedpulmonary status with the nurse and RT. Physical examination unchanged. No new pulmonary concerns. Continue current orders as written. He remains resting in bed and remains on CATC with PMV. No RT concerns. Impression: Acute on Chronic Hypoxic Respiratory Failure [...]
--- OUTSIDE RECORDS SUMMARY | 2025-06-03 07:00 | XMS_ITS ---
Author Organization [facility] Address [address] [place] [address] [address] [place] [address] Care Team Providers Care Hemstitcher Name Role Phone SHIRA HAYES Unavailable [phone] SELL RUIZ Unavailable [phone] REASON FOR VISIT Respiratory Failure, Tracheostomy, Hx Aspiration PNA Encounters Encounter Location Date Provider Diagnosis [address] [place], [place] [phone] 06/03/2025 RUIZ SELL Tracheostomy status Z93.0 ; Acute on chronic hypoxic respiratory failure J96.21 ; Aspiration pneumonia, unspecified aspiration pneumonia type, unspecified laterality, unspecified part of lung J69.0 ; Pleural effusion J90 and Acute on chronic diastolic (congestive) heart failure I50.33 Assessments Encounter Date Diagnosis (ICD Code) Assessment Notes Treatment Notes Treatment Clinical Notes Section Notes 06/03/2025 Tracheostomy status (ICD-10 - Z9 3.0) 5Acute on chronic hypoxic respiratory failure (ICD-10 - J96.21) 06/03/2025spiration pneumonia, unspecified aspiration pneumonia type, unspecified laterality, unspecified part of lung (ICD-10 - J69.0)06/03/2025 Pleural effusion (ICD-10 - J90)5Acute on chronic diastolic (congestive) heart failure (ICD-10 - I50.33)06/03/2025OtherSeen in collaboration and discussed plan of care with Dr. Shira Hayes Plan Of Treatment Treatment Notes Assessment Notes Other Seen in collaboratio n and discussed plan of care with Dr. Shira Hayes Next Appt Details Follow Up: 2 - 3 Days, Reaso n: Progress Notes * Farhan HORNEDOB:1955 ( 70 yo M)Acc No.[id number]:06/03/2025 Progress Notes Patient: Farhan WESTFALL Provider:?RUIZ ROQUE, NPDOB:1955???Age: 70 Y???Sex:MaleDate:06/03/2025Phone:Address:[address] [place] [address] [address], [place], [phone] Subjective: * Chief Complaints: * R espiratory FailureTracheostomyHx Aspiration PNA * HPI: ???Constitutional:? Continuing to see patient for pulmonary management. Evaluated the patient while in the facility. Reviewed electronic chart and any new orders from the primary service. Discussed the patient's care with the nurse and RT. Resident is resting in bed and remains on CATC. No RT concerns. Leaving soon for GI appt in [place]. Continue with current orders. Please contact our team with any change in respiratory condition or questions.? Impression:? Acute on Chronic Hypoxic Respiratory Failure [...] to see patient for pulmonary management. Evaluated the patient while in the facility. Reviewed electronic chart and any new orders from the primary service. Discussed the patient's care with the nurse and RT. Resident is resting in bed and remains on CATC. No RT concerns. Leaving soon for GI appt in [place]. Continue with current orders. Please contact our team with any change in respiratory condition or questions. Impression: Acute on Chronic Hypoxic Respiratory Failure [...]
[2025-06-03 23:12] VITALS: BP 132/56; PULSE 63; O2SAT 100
[2025-06-03 23:19] VITALS: BP 132/56; PULSE 60; TEMP 36.9; O2SAT 100; BMI 25.8
--- OUTSIDE RECORDS SUMMARY | 2025-06-03 23:19 | XMS_ITS | Patient Health Record ---
Author Organization [facility] Address [address] [facility] [address] [place] [address] Care Team Providers Care Planning Director Name Role Phone FREDDY SHIRA Unavailable [phone] ANITA CHANDLER Unavailable [phone] RUIZ ROQUE Unavailable [phone] Reason For Referral No Information Problems Problem Type SNOMED Code ICD Code Onset Dates Problem Status W/U Status Risk Notes Problem Acute on chronic jeffrey stolic heart failure (586024650) Acute on chronic diastolic (congestive) heart failure (I50.33) ActiveconfirmedProblemChronic respiratory failure (52071972)Chronic respiratory failure with hypoxia (J96.11)ActiveconfirmedProblemTracheostomy present (693761506)Tracheostomy status (Z93.0)XixgztgokoxxrzwGybvevpAkpal-uz-rhcuugd hypoxemic respiratory failure (disorder) (76234083006892214)Acute on chronic hypoxic respiratory failure (J96.21)Activeconfirmed Encounters Encounter Location Date Provider Diagnosis [address] [id number] 05/30/2025 SHIRA HAYES Tracheostomy status Z93.0 ; Acute on chronic hypoxic respiratory failure J96.21 ; Aspiration pneumonia, unspecified aspiration pneumonia type, unspecified laterality, unspecified part of lung J69.0 ; Pleural effusion J90 and Acute on chronic diastolic (congestive) heart failure I50.[address] [id number] 05/20/2025 RUIZ ROQUE Chronic respiratory failure with hypoxia J96.11 ; Acute respiratory failure with hypoxia J96.01 and Tracheostomy status Z93.0 [place] [address] [id number] 05/25/2025 ANITA CHANDLER Tracheostomy status Z93.0 ; Acute on chronic hypoxic respiratory failure J96.21 ; Aspiration pneumonia, unspecified aspiration pneumonia type, unspecified laterality, unspecified part of lung J69.0 ; Pleural effusion J90 and Acute on chronic diastolic (congestive) heart failure I50.33 [place] [address] [id number] 05/27/2025 RUIZ SELL Tracheostomy status Z93.0 ; Acute on chronic hypoxic respiratory failure J96.21 ; Aspiration pneumonia, unspecified aspiration pneumonia type, unspecified laterality, unspecified part of lung J69.0 ; Pleural effusion J90 and Acute on chronic diastolic (congestive) heart failure I50.33 [place] [address] [facility] [address] [place], [place] [id number] 06/01/2025 JOSEArelis CHANDLER Tracheostomy status Z93.0 ; Acute on chronic hypoxic respiratory failure J96.21 ; Aspiration pneumonia, unspecified aspiration pneumonia type, unspecified laterality, unspecified part of lung J69.0 ; Pleural effusion J90 and Acute on chronic diastolic (congestive) heart failure I50.33 Assessments Encounter Date Diagnosis (ICD Code) Assessment Notes Treatment Notes Treatment Clinical Notes Section Notes 05/20/2025 Acute respiratory failure with h ypoxia (ICD-10 - J96.01) 05/20/2025hronic respiratory failure with hypoxia (ICD-10 - J96.11)05/25/2025 Tracheostomy status (ICD-10 - Z93.0)5Acute on chronic hypoxic respiratory failure (ICD-10 - J96.21)05/27/2025Tracheostomy status (ICD-10 - Z93.0)05/30/2025Tracheostomy status (ICD-10 - Z93.0)06/01/2025Tracheostomy status (ICD-10 - Z93.0)5Acute on chronic hypoxic respiratory failure (ICD-10 - J96.21)5Acute on chronic hypoxic respiratory failure (ICD-10 - J96.21)5Acute on chronic hypoxic respiratory failure (ICD-10 - J96.21)05/25/2025spiration pneumonia, unspecified aspiration pneumonia type, unspecified laterality, unspecified part of lung (ICD-10 - J69.0)05/20/2025 Tracheostomy status (ICD-10 - Z93.0)05/25/2025Pleural effusion (ICD-10 - J90) 05/27/2025spiration pneumonia, unspecified aspiration pneumonia type, unspecified laterality, unspecified part of lung (ICD-10 - J69.0)05/30/2025 Aspiration pneumonia, unspecified aspiration pneumonia type, unspecified laterality, unspecified part of lung (ICD-10 - J69.0)06/01/2025spiration pneumonia, unspecified aspiration pneumonia type, unspecified laterality, unspecified part of lung (ICD-10 - J69.0)06/01/2025Pleural effusion (ICD-10 - J90)05/27/2025Pleural effusion (ICD-10 - J90)05/30/2025Pleural effusion (ICD-10 - J90)5Acute on chronic diastolic (congestive) heart failure (ICD-10 - I50.33)5Acute on chronic diastolic (congestive) heart failure (ICD-10 - I50.33)5Acute on chronic diastolic (congestive) heart failure (ICD-10 - I50.33)5Acute on chronic diastolic (congestive) heart failure (ICD-10 - I50.33)05/20/2025OtherSejosé luis in collaboration and discussed plan of care with Dr. Shira Hayes05/25/2025OtherSejosé luis in collaboration and discussed plan of care with Dr. Shira Hayes05/27/2025OtherSejosé luis in collaboration and discussed plan of care with Dr. Shira Hayes06/01/2025OtherEstephania in collaboration and discussed plan of care with Dr. Shira Hayes Plan Of Treatment Next Appt Details Provider Name:RUIZ ROQUE, 06/03/2025 11:00:00 AM, [address] [facility], [address], [place], [place], [id number], Insurance Providers Payer Name Payer Address Payer Phone Subscriber Number Group Number Insured Name Patient Relationship to Insured Coverage Start Date Coverage End Date [employer] [place] [place] [address] [id number] Deysi Horneelf - patient is the insured
[2025-06-03 23:20] VITALS: PULSE 83; O2SAT 100
--- NOTE | 2025-06-03 23:22 | ECG_ITS ---
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 Measurements Intervals [place] Rate: 62 P: 21 NE: 124 QRS: 15 QRSD: 94 T: -8 QT: 400 QTc: 405 Interpretive Statements 1100 Sinus rhythm 4068 Nonspecific Twave abnormality 9130 borderline ECG No previous ECG available for comparison Electronically Signed On 06-04-2025 6:29:43 EDT by TAWNY BRAMBILA M.D.
--- NOTE | 2025-06-03 23:22 | CT_ITS ---
The [address] [address] Patient Name: TERRY MERIDA MRN: [id number] date: 1955 Sex: M Assigned Patient Location: ED.MAIN Current Patient Location: ER Accession/Order Number: [id number] Exam Date: 06/03/2025 23:35 Report Date: 06/04/2025 00:07 At the request of: EVANGELIST PATEL MD Procedure: CT stroke head/brain wo con CT BRAIN/STROKE WITHOUT CONTRAST: CLINICAL HISTORY: acute unresponsiveness COMPARISON: 01/18/2025 TECHNIQUE: Contiguous axial unenhanced images were obtained through the brain. This CT exam was performed using one or more following dose reduction techniques: Automated exposure control, adjustment of the mA and/or kV according to patient size, or use of iterative reconstruction technique. FINDINGS: There is no evidence of midline shift, intra or extra-axial fluid collection, hemorrhage or CT evidence of acute large vascular distribution stroke. Mild central involutional changes and chronic small ischemic disease. Intracranial vascular calcification. Visualized intraorbital contents appear unremarkable. Left maxillary sinus mucous retention cyst versus polyp. Mastoids are clear. The surrounding soft tissues are normal. CT/CT stroke head/brain wo con IMPRESSION: NO ACUTE INTRACRANIAL ABNORMALITY. MILD CHRONIC SMALL VESSEL CHANGES. Discussed with Dr. Patel of the telephone 06/04/2025 12:06 AM Impression dictated by: Modesto Teresa M.D. 06/04/2025 12:07 AM Dictation Location: [place] [address] Electronically authenticated by: [id number] Y Date: 06/04/2025 00:07
--- NOTE | 2025-06-03 23:24 | ED.AMS1 ---
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 He states he required surgery on his back. He is able to use his arm but can only move his feet and is bed confined. Has Trach in place and feeding tube. resides at detention. Nurse states she hung his feedings around 9:30pm and he was normal. When she returned he appeared to not be breathing. She did sternal rub and he open his eyes but with little other communication and he was staring in one direction. Transferred via Squad and /2 way here reported as responded normally. He arrives awake and in no distress Related Data Home Medications ?Medication ?Instructions ?Recorded ?Confirmed acetaminophen 325 mg capsule 650 mg PO Q6H PRN fever or pain 06/04/25 06/04/25 acidophilus 100 million 1 cap PO TID 06/04/25 06/04/25 cell-pectin, citrus 10 mg capsule (Probiotic Acidophilus-Pectin) apixaban 5 mg tablet 5 mg PO BID 06/04/25 06/04/25 arginine 7 gram-glutam 7 1 packet PO DAILY 06/04/25 06/04/25 gram-CaHMB 1.5 qmmz-lbwak-vs-min oral pwd pkt (Kyle (with collagen)) aspirin 81 mg capsule 81 mg PO DAILY 06/04/25 06/04/25 atorvastatin 40 mg tablet 40 mg PO DAILY 06/04/25 06/04/25 bethanechol chloride 5 mg tablet 5 mg PO TID 06/04/25 06/04/25 buspirone 5 mg tablet 5 mg PO BID 06/04/25 06/04/25 cholecalciferol (vitamin D3) 25 25 mcg PO DAILY 06/04/25 06/04/25 mcg (1,000 unit) capsule cholestyramine (with sugar) 4 gram ea 06/04/25 oral powder (Questran) ciprofloxacin HCl 500 mg tablet 500 mg PO Q12H 06/04/25 06/04/25 (Cipro) digoxin 250 mcg (0.25 mg) tablet 250 mcg PO DAILY 06/04/25 06/04/25 (Digitek) docusate sodium 100 mg capsule 100 mg PO BID 06/04/25 06/04/25 (Colace) furosemide 40 mg tablet 40 mg PO BID 06/04/25 06/04/25 gabapentin 600 mg tablet 600 mg PO TID 06/04/25 06/04/25 hydroxyzine HCl 25 mg tablet 25 mg PO Q6H PRN anxiety 06/04/25 06/04/25 insulin glargine 100 unit/mL (3 26 unit subcut DAILY 06/04/25 06/04/25 mL) subcutaneous pen (Basaglar KwikPen U-100 Insulin) insulin lispro 100 unit/mL 1 sliding scale dose subcut 06/04/25 06/04/25 subcutaneous pen USEASDIRECTD ipratropium 0.5 mg-albuterol 3 mg 3 ml inhalation QID PRN wheezing 06/04/25 06/04/25 (2.5 mg base)/3 mL nebulization soln lidocaine 4 % topical patch 1 patch topical DAILY PRN pain 06/04/25 06/04/25 (Lidocaine Pain Relief) loperamide 2 mg capsule (Imodium 2 mg PO QID PRN loose stool 06/04/25 06/04/25 A-D) melatonin 3 mg capsule 3 mg PO HS PRN sleep 06/04/25 06/04/25 metoprolol tartrate 25 mg tablet 25 mg PO Q12H 06/04/25 06/04/25 omeprazole 20 mg capsule,delayed 40 mg PO DAILY 06/04/25 06/04/25 release ondansetron HCl 4 mg tablet 4 mg PO TID-QID PRN nausea and 06/04/25 06/04/25 vomiting oxycodone 10 mg tablet 20 mg PO Q4H 06/04/25 06/04/25 polyethylene glycol 3350 17 17 g PO DAILY 06/04/25 06/04/25 gram/dose oral powder (ClearLax) prednisone 20 mg tablet 10 mg PO DAILY 06/04/25 06/04/25 silodosin 8 mg capsule (Rapaflo) 8 mg PO DAILY 06/04/25 06/04/25 tizanidine 4 mg capsule 4 mg PO Q12H PRN muscle spasticity 06/04/25 06/04/25 trazodone 100 mg tablet 100 mg PO DAILY 06/04/25 06/04/25 Allergies Allergy/AdvReac Type Severity Reaction Status Date / Time No Known Allergies Allergy Unknown o Verified 06/03/25 23:27 Review of Systems ROS Status of ROS 10 or more systems reviewed and unremarkable except as noted in history and below [facility] Medical History (Updated 06/04/25 @ 02:51 by Jamarcus Patel MD) Traumatic subarachnoid hemorrhage ?S06.6XAA - Traumatic subarachnoid hemorrhage with loss of consciousness status unknown, initial encounter (ICD-10) A-fib ?I48.91 - Unspecified atrial fibrillation (ICD-10) Neuromuscular dysfunction of bladder ?N31.9 - Neuromuscular dysfunction of bladder, unspecified (ICD-10) Type 2 diabetes mellitus ?E11.9 - Type 2 diabetes mellitus without complications (ICD-10) Anemia ?D64.9 - Anemia, unspecified (ICD-10) Hypertension ?I10 - Essential (primary) hypertension (ICD-10) GERD (gastroesophageal reflux disease) ?K21.9 - Gastro-esophageal reflux disease without esophagitis (ICD-10) Tracheostomy in place ?Z93.0 - Tracheostomy status (ICD-10) Acute respiratory failure ?J96.00 - Acute respiratory failure, unspecified whether with hypoxia or hypercapnia (ICD-10) Acute myocardial infarction ?I21.9 - Acute myocardial infarction, unspecified (ICD-10) Right humeral fracture ?S42.301A - Unspecified fracture of shaft of humerus, right arm, initial encounter for closed fracture (ICD-10) Kidney laceration, right ?S37.031A - Laceration of right kidney, unspecified degree, initial encounter (ICD-10) Ribs, multiple fractures ?S22.49XA - Multiple fractures of ribs, unspecified side, initial encounter for closed fracture (ICD-10) Rib fractures ?S22.49XA - Multiple fractures of ribs, unspecified side, initial encounter for closed fracture (ICD-10) Liver laceration ?S36.113A - Laceration of liver, unspecified degree, initial encounter (ICD-10) Exam Constitutional Vital Signs, click to edit/add: Last Vital Signs Temp 98.5 F 06/03/25 23:19 Pulse 58 L 06/04/25 01:50 Resp 24 H 06/04/25 01:51 BP 156/63 H 06/04/25 01:29 Pulse Ox 100 06/04/25 01:51 O2 Del Method Trach Collar 06/04/25 01:51 O2 Flow Rate 8 06/03/25 23:19 Common normals: no apparent distress, oriented x3 and alert HENMT Common normals: normocephalic and head/scalp atraumatic Eye Common normals: EOMs intact bilaterally and conjunctivae normal Respiratory Common normals: normal respiratory effort, no retractions, no use of accessory muscles and clear to auscultation bilaterally Cardio Common normals: regular rate, regular rhythm, S1 normal heart sound and S2 normal heart sound GI Common normals: Normal to inspection, nondistended, normoactive bowel sounds present and soft to palpation Extremity Other: readily using both arms but can only move his feet some Neuro Common normals: oriented x3 and CN's II-XII intact bilaterally Psych Appearance: grossly normal Course Vital Signs Vital signs: Vital Signs Pulse Rate 63 06/03/25 23:12 Respiratory Rate 16 06/03/25 23:12 Blood Pressure 132/56 06/03/25 23:12 Pulse Oximetry 100 06/03/25 23:12 Temperature 98.5 F 06/03/25 23:19 Pulse Rate 58 L 06/04/25 01:50 Respiratory Rate 24 H 06/04/25 01:51 Blood Pressure 156/63 H 06/04/25 01:29 Pulse Oximetry 100 06/04/25 01:51 Oxygen Delivery Method Trach Collar 06/04/25 01:51 Oxygen Delivery Flow Rate 8 06/03/25 23:19 MDM - Altered Mental Status MDM Narrative Medical decision making narrative: paraplegic detention patient. Found unresponsive and staring in one direction. Responded to sternal rub but did not immediately return to his baseline. ? TIA. En route to the hospital via Squad he became his normal self and was communicating as usual. He has a very large sacral ulcer with exposed muscle tissue. workup in the department neg including CT brain, CTA brain and neck. Patient remains awake and alert and communicating normally. Discussed with the hospitalist and will plan obs admission Lab Data Labs: Lab Results 06/03/25 Range/Units 23:25 WBC 12.5 H (4.0-11.0) 10^3/uL RBC 3.23 L (4.70-6.10) 10^6/uL Hgb 9.0 L (14.0-18.0) g/dL Hct 28.5 L (42.0-54.0) % MCV 88.2 (80.0-94.0) fL MCH 27.9 (25.9-34.0) pg MCHC 31.6 (29.9-35.2) g/dL RDW 15.4 H (11.0-15.0) % Plt Count 361 (150-450) 10^3/uL MPV 10.2 (9.5-13.5) fL Neut % (Auto) 80.4 H (43.0-75.0) % Lymph % (Auto) 10.7 L (20.5-60.0) % [place] % (Auto) 6.5 (1.7-12.0) % Eos % (Auto) 0.3 L (0.9-7.0) % Baso % (Auto) 0.2 (0.2-2.0) % Neut # (Auto) 10.0 H (1.4-6.5) 10^3/uL Lymph # (Auto) 1.3 (1.2-3.8) 10^3/uL [place] # (Auto) 0.8 (0.3-0.8) 10^3/uL Eos # (Auto) 0.0 (0.0-0.7) 10^3/uL Baso # (Auto) 0.0 (0.0-0.1) 10^3/uL Abs Immat Gran (auto) 0.24 H (0.00-0.03) 10^3/uL Imm/Tot Granulo (auto) 1.9 H (0.0-0.5) % Sodium 137 (136-145) mmol/L Potassium 4.1 (3.5-5.1) mmol/L Chloride 97 L (98-107) mmol/L Carbon Dioxide 30.6 (21.0-32.0) mmol/L Anion Gap 13.5 BUN 22.0 H (7.0-18.0) mg/dL Creatinine 0.50 L (0.70-1.30) mg/dL Est GFR ( Amer) >60 (>=60 mL/min/1.73m^2) Est GFR (Non-Af Amer) >60 (>=60 mL/min/1.73m^2) BUN/Creatinine Ratio 44.0 Glucose 210 H (74-106) mg/dL Calcium 9.6 (8.5-10.1) mg/dL Troponin I High Sens 14.6 (4.0-76.1) pg/mL Discharge Plan Discharge Chief Complaint: Altered Mental Status Clinical Impression: Altered mental status, Chronic ulcer of sacral region Patient Disposition: Admitted as Observation
--- NOTE | 2025-06-03 23:29 | XR_ITS ---
The [address] [address] Patient Name: TERRY MERIDA MRN: [id number] date: 1955 Sex: M Assigned Patient Location: ER Current Patient Location: [place] Accession/Order Number: [id number] Exam Date: 06/03/2025 23:55 Report Date: 06/04/2025 08:48 At the request of: EVANGELIST CUTLER MD Procedure: XR chest 1V PORTABLE AP ERECT CHEST 2344 hours CLINICAL HISTORY: short of breath and decreased responsiveness COMPARISON: 01/18/2025 A tracheostomy tube is present. There is shallow inspiration. The heart is top normal in size. There is no suspected vascular congestion. There is minimal atelectasis and/or scarring. There is a possible right-sided granuloma. There is no effusion or pneumothorax. The osseous structures are intact. There is endplate spurring at the spine. Prior cervical fusion is noted. There is degenerative change at the shoulders. XR/XR chest 1V IMPRESSION: BORDERLINE CARDIOMEGALY AND MINOR CHRONIC PARENCHYMAL CHANGES. NO ADDITIONAL ACUTE FINDINGS. Impression dictated by: Jo-Ann Delcid M.D. 06/04/2025 8:48 AM Dictation Location: [place] [address] Electronically authenticated by: [id number] Y Date: 06/04/2025 08:48
[2025-06-03 23:48] VITALS: PULSE 150
[2025-06-03 23:50] VITALS: PULSE 95; O2SAT 100
[2025-06-03 23:58] LABS: Hematocrit 28.5 % (42.0-54.0); Hemoglobin 9.0 g/dL (14.0-18.0); Immature Granulocytes Abs Auto 0.24 10^3/uL (0.00-0.03); Immature Granulocytes Pct Auto 1.9 % (0.0-0.5); Lymphocytes Absolute Auto 1.3 10^3/uL (1.2-3.8); Mean Corpuscular HGB Conc 31.6 g/dL (29.9-35.2); Mean Corpuscular Hemoglobin 27.9 pg (25.9-34.0); Mean Corpuscular Volume 88.2 fL (80.0-94.0); Platelet Count 361 10^3/uL (150-450); Red Blood Count 3.23 10^6/uL (4.70-6.10); White Blood Count 12.5 10^3/uL (4.0-11.0)
[2025-06-04] VITALS (36 sets, daily range): BP systolic 139–176; BP diastolic 60–74; PULSE 54–72; TEMP 36.6–36.8; O2SAT 71–100; BMI 25.7
[2025-06-04 00:20] LABS: Anion Gap 13.5; Blood Urea Nitrogen 22.0 mg/dL (7.0-18.0); Calcium 9.6 mg/dL (8.5-10.1); Carbon Dioxide 30.6 mmol/L (21.0-32.0); Chloride 97 mmol/L (98-107); Estimated GFR (African America >60 (>=60 mL/min/1.73m^2); Estimated GFR (Non-African Ame >60 (>=60 mL/min/1.73m^2); Glucose 210 mg/dL (74-106); Potassium 4.1 mmol/L (3.5-5.1); Sodium 137 mmol/L (136-145)
[2025-06-04] MEDS: HYDROMORPHONE HCL 1 MG/ML CARTRIDGE 0.5 MG IVP ×2 (00:52→06:59)
[2025-06-04] MEDS: HYDROMORPHONE HCL 1 MG/ML CARTRIDGE IVP (02:23)
[2025-06-04 06:10] LABS: Alanine Aminotransferase 29 U/L (16-63); Albumin Globulin Ratio 0.6; Albumin Level 2.2 g/dL (3.4-5.0); Alkaline Phosphatase 110 U/L (46-116); Anion Gap 8.5; Aspartate Amino Transferase 16 U/L (15-37); Blood Urea Nitrogen 19.0 mg/dL (7.0-18.0); Calcium 9.8 mg/dL (8.5-10.1); Carbon Dioxide 33.4 mmol/L (21.0-32.0); Chloride 99 mmol/L (98-107); Estimated GFR (African America >60 (>=60 mL/min/1.73m^2); Estimated GFR (Non-African Ame >60 (>=60 mL/min/1.73m^2); Globulin 3.6 g/dL; Glucose 135 mg/dL (74-106); Potassium 3.9 mmol/L (3.5-5.1); Sodium 137 mmol/L (136-145); Total Protein 5.8 g/dL (6.4-8.2)
[2025-06-04 06:12] LABS: Hematocrit 30.7 % (42.0-54.0); Hemoglobin 9.6 g/dL (14.0-18.0); Immature Granulocytes Abs Auto 0.24 10^3/uL (0.00-0.03); Immature Granulocytes Pct Auto 1.8 % (0.0-0.5); Lymphocytes Absolute Auto 1.9 10^3/uL (1.2-3.8); Mean Corpuscular HGB Conc 31.3 g/dL (29.9-35.2); Mean Corpuscular Hemoglobin 27.7 pg (25.9-34.0); Mean Corpuscular Volume 88.5 fL (80.0-94.0); Platelet Count 325 10^3/uL (150-450); Red Blood Count 3.47 10^6/uL (4.70-6.10); White Blood Count 13.2 10^3/uL (4.0-11.0)
[2025-06-04] MEDS: 0.9 % SODIUM CHLORIDE 1,000 ML 125 ML IV (06:13)
[2025-06-04 06:38] LABS: Ferritin 1477.0 ng/mL (26.0-388.0)
[2025-06-04 06:41] LABS: Iron 29.0 ug/dL (65.0-175.0)
[2025-06-04 06:42] LABS: Percent Iron Saturation 17.6 %; Total Iron Binding Capacity 165.0 ug/dL (250.0-450.0)
[2025-06-04 07:56] LABS: Glucose Urine UA NEGATIVE (NEGATIVE)
--- NOTE | 2025-06-04 08:00 | ECG_ITS ---
The [facility] Test Date: 2025-06-04 Pat Name: TERRY MERIDA Department: Room: [facility] Gender: Male Web Development Director: : 1955 Requested By: [id number] Order Number: [id number] Reading MD: TAWNY BRAMIBLA M.D. Measurements Intervals [place] Rate: 61 P: 52 [place]: 131 QRS: 38 QRSD: 103 T: -38 QT: 404 QTc: 408 Interpretive Statements SINUS RHYTHM ST DEVIATION AND MODERATE T-WAVE ABNORMALITY, CONSIDER INFERIOR ISCHEMIA [-0.1+ mV T WAVE IN II/aVF] Abnormal ECG Compared to ECG 06/03/2025 23:12:44 No significant changes Electronically Signed On 06-04-2025 18:04:04 EDT by TAWNY BRAMBILA M.D.
[2025-06-04 08:10] LABS: Cast Seen? NONE SEEN #/LPF (NONE SEEN); Crystals Seen? None Seen #/HPF (None Seen)
--- NOTE | 2025-06-04 09:13 | SWNOTE1 ---
SW received a call from Anitha at [facility] [place]. Pt is from there, he is not a bed hold, but they will take him back whenever he is ready for discharge as long as pt wants to return. HEMA to speak with pt. 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
--- NOTE | 2025-06-04 09:22 | PM.HP ---
HPI H&P: HPI History of Present Illness Chief complaint: other, ALTERED STATE OF CONSCIOUSNESS Narrative: Mr Kern is a 70-year-old gentleman with a known history of crush injury which had [facility]. Unknown whether he had the spinal injury or pelvic injury causing him to be in bed. Unable to stand up and ambulate. Patient has chronic pain. Patient has been at the nursing facility and various previous institutions acute care and long-term acute care since January. Patient had been doing fairly well yesterday up until last evening when nursing staff reported that he became unresponsive. Nurse tried to wake him up but he could not open his eyes or communicate. EMS was called and and the patient started to regain his consciousness by that time. Patient was brought to the emergency room and was noted to be at his baseline mental state according to his family. No fever or chills. No vomiting. Patient has chronic pain. Patient is feeling fairly well today. He is able to nod his head. He has trach. He is able to follow command. No confusion or delusion. Able to focus. Opioid HPI Opioid Management Most Recent Pain and Opioid Data: Last Pain Scale 10 Today, 08:26 Last Pain Assessment Today, 08:26 Last MAR Pain Assessment Today, 08:25 Review of Systems ROS Status of ROS 10 or more systems reviewed and unremarkable except as noted in history and below [facility] Medical History (Updated 06/04/25 @ 02:51 by Jamarcus Patel MD) Traumatic subarachnoid hemorrhage ?S06.6XAA - Traumatic subarachnoid hemorrhage with loss of consciousness status unknown, initial encounter (ICD-10) A-fib ?I48.91 - Unspecified atrial fibrillation (ICD-10) Neuromuscular dysfunction of bladder ?N31.9 - Neuromuscular dysfunction of bladder, unspecified (ICD-10) Type 2 diabetes mellitus ?E11.9 - Type 2 diabetes mellitus without complications (ICD-10) Anemia ?D64.9 - Anemia, unspecified (ICD-10) Hypertension ?I10 - Essential (primary) hypertension (ICD-10) GERD (gastroesophageal reflux disease) ?K21.9 - Gastro-esophageal reflux disease without esophagitis (ICD-10) Tracheostomy in place ?Z93.0 - Tracheostomy status (ICD-10) Acute respiratory failure ?J96.00 - Acute respiratory failure, unspecified whether with hypoxia or hypercapnia (ICD-10) Acute myocardial infarction ?I21.9 - Acute myocardial infarction, unspecified (ICD-10) Right humeral fracture ?S42.301A - Unspecified fracture of shaft of humerus, right arm, initial encounter for closed fracture (ICD-10) Kidney laceration, right ?S37.031A - Laceration of right kidney, unspecified degree, initial encounter (ICD-10) Ribs, multiple fractures ?S22.49XA - Multiple fractures of ribs, unspecified side, initial encounter for closed fracture (ICD-10) Rib fractures ?S22.49XA - Multiple fractures of ribs, unspecified side, initial encounter for closed fracture (ICD-10) Liver laceration ?S36.113A - Laceration of liver, unspecified degree, initial encounter (ICD-10) Social History Gender Identity: male Meds Home Medications and Allergies Home Medications ?Medication ?Instructions ?Recorded ?Confirmed ?Type acetaminophen 325 mg capsule 650 mg PO Q6H PRN fever or pain 06/04/25 06/04/25 History acidophilus 100 million 1 cap PO TID 06/04/25 06/04/25 History cell-pectin, citrus 10 mg capsule (Probiotic Acidophilus-Pectin) apixaban 5 mg tablet 5 mg PO BID 06/04/25 06/04/25 History arginine 7 gram-glutam 7 1 packet PO DAILY 06/04/25 06/04/25 History gram-CaHMB 1.5 fivl-sihoy-ji-min oral pwd pkt (Kyle (with collagen)) aspirin 81 mg capsule 81 mg PO DAILY 06/04/25 06/04/25 History atorvastatin 40 mg tablet 40 mg PO DAILY 06/04/25 06/04/25 History bethanechol chloride 5 mg tablet 5 mg PO TID 06/04/25 06/04/25 History buspirone 5 mg tablet 5 mg PO BID 06/04/25 06/04/25 History cholecalciferol (vitamin D3) 25 25 mcg PO DAILY 06/04/25 06/04/25 History mcg (1,000 unit) capsule cholestyramine (with sugar) 4 gram 1 ea PO .QD 06/04/25 06/04/25 History oral powder (Questran) ciprofloxacin HCl 500 mg tablet 500 mg PO Q12H 06/04/25 06/04/25 History (Cipro) digoxin 250 mcg (0.25 mg) tablet 250 mcg PO DAILY 06/04/25 06/04/25 History (Digitek) docusate sodium 100 mg capsule 100 mg PO BID 06/04/25 06/04/25 History (Colace) furosemide 40 mg tablet 40 mg PO BID 06/04/25 06/04/25 History gabapentin 600 mg tablet 600 mg PO TID 06/04/25 06/04/25 History hydroxyzine HCl 25 mg tablet 25 mg PO Q6H PRN anxiety 06/04/25 06/04/25 History insulin glargine 100 unit/mL (3 26 unit subcut DAILY 06/04/25 06/04/25 History mL) subcutaneous pen (Basaglar KwikPen U-100 Insulin) insulin lispro 100 unit/mL 1 sliding scale dose subcut 06/04/25 06/04/25 History subcutaneous pen USEASDIRECTD ipratropium 0.5 mg-albuterol 3 mg 3 ml inhalation QID PRN wheezing 06/04/25 06/04/25 History (2.5 mg base)/3 mL nebulization soln lidocaine 4 % topical patch 1 patch topical DAILY PRN pain 06/04/25 06/04/25 History (Lidocaine Pain Relief) loperamide 2 mg capsule (Imodium 2 mg PO QID PRN loose stool 06/04/25 06/04/25 History A-D) melatonin 3 mg capsule 3 mg PO HS PRN sleep 06/04/25 06/04/25 History metoprolol tartrate 25 mg tablet 25 mg PO Q12H 06/04/25 06/04/25 History omeprazole 20 mg capsule,delayed 40 mg PO DAILY 06/04/25 06/04/25 History release ondansetron HCl 4 mg tablet 4 mg PO TID-QID PRN nausea and 06/04/25 06/04/25 History vomiting oxycodone 10 mg tablet 20 mg PO Q4H 06/04/25 06/04/25 History polyethylene glycol 3350 17 17 g PO DAILY 06/04/25 06/04/25 History gram/dose oral powder (ClearLax) prednisone 20 mg tablet 10 mg PO DAILY 06/04/25 06/04/25 History silodosin 8 mg capsule (Rapaflo) 8 mg PO DAILY 06/04/25 06/04/25 History tizanidine 4 mg capsule 4 mg PO Q12H PRN muscle spasticity 06/04/25 06/04/25 History trazodone 100 mg tablet 100 mg PO DAILY 06/04/25 06/04/25 History Allergies Allergy/AdvReac Type Severity Reaction Status Date / Time No Known Allergies Allergy Unknown o Verified 06/03/25 23:27 Exam Narrative Exam Narrative: Patient is lying in bed. Pale skin buccal mucosa. Patient has a trach. No respiratory distress. Chest exam revealed bilateral breath sound. Heart is regular. Abdomen soft. PEG tube is in the epigastric area. Minimal discomfort in the periumbilical area. The PEG tube appears to be sliced partially in the middle. Lower extremities showed muscle wasting and atrophy. Patient has at least stage III sacral ulcer measuring about 4 inches in diameter. Somewhat circular. Patient has yellowish blackish tissue involving the superior aspect of it as seen on the picture taken by his nurse. No foul smelling. No pus. Patient is able to lift up his arms against gravity and some resistance. Patient is able to lift up his legs against gravity partially. Patient is able to focus. Able to follow command. He appears to understand conversation and questions very well. He has trach therefore he cannot speak. Constitutional Vital Signs, click to edit/add: Last Vital Signs Temp 98.1 F 06/04/25 07:58 Pulse 62 06/04/25 07:58 Resp 20 06/04/25 07:58 BP 158/60 H 06/04/25 07:58 Pulse Ox 98 06/04/25 07:58 O2 Del Method Trach Collar 06/04/25 09:17 O2 Flow Rate 9 06/04/25 09:15 FiO2 35 06/04/25 09:15 Results Labs Labs: Short CBC 06/03/25 06/04/25 Range/Units 23:25 05:35 WBC 12.5 H 13.2 H (4.0-11.0) 10^3/uL Hgb 9.0 L 9.6 L (14.0-18.0) g/dL Hct 28.5 L 30.7 L (42.0-54.0) % Plt Count 361 325 (150-450) 10^3/uL BMP 06/03/25 06/04/25 23:25 05:35 Sodium 137 137 Potassium 4.1 3.9 Chloride 97 L 99 Carbon Dioxide 30.6 33.4 H BUN 22.0 H 19.0 H Creatinine 0.50 L 0.36 L Glucose 210 H 135 H Calcium 9.6 9.8 Liver Function 06/04/25 Range/Units 05:35 Total Bilirubin 0.4 (0.2-1.0) mg/dL AST 16 (15-37) U/L ALT 29 (16-63) U/L Alkaline Phosphatase 110 (46-116) U/L Albumin 2.2 L (3.4-5.0) g/dL Urine 06/04/25 Range/Units 07:20 Urine Color Yellow (YELLOW) Urine Clarity Clear (CLEAR) Urine pH 5.0 (5.0-9.0) Ur Specific [place] <=1.005 A (1.005-1.025) Urine Protein Negative (NEG/TRACE) mg/dL Urine Glucose (UA) Negative (NEGATIVE) mg/dL Assessment and Plan Assessment and Plan (1) Altered mental status: Plan Transient change of mental status and unresponsiveness CT head is negative for acute intracranial process. CTA head and neck are negative for any vascular compromise. Possibility of patient being overmedicated with pain regimen however the short duration of this episode is inconsistent with overdose. Possibility of nonconvulsive seizure Possibility of cardiac dysrhythmia and transit cerebral hypoperfusion. No significant metabolic derangement. Patient is on Eliquis for cardiac issues. Resume Eliquis. Continue to monitor. Seizure precaution. Telemetry monitoring. Echocardiogram rule out cardiomyopathy or significant valvular disease. Additional needed diagnostic and therapeutic invention will be determined based on the clinical progression and follow-up test result Sliced PEG tube in the middle This will need to be replaced. Family is requesting to transfer him to [facility] where he had received all care in the past. At least stage III ulcer as seen on the picture taken by nurse No clinical evidence of infection White count is slightly elevated. Hold off on antibiotic treatment Continue wound care. Nutrition. Unfortunately the PEG tube is sliced and leaking Started patient on D5 normal saline until the patient goes to [facility] and the tube feed is replaced. Diabetes Start patient on Accu-Chek and sliding scale every 6 hours. Multiple other medical conditions, patient is on multiple medications through the PEG tube. We will try to maneuver the slicing of the tube hopefully to get some medications in. Tracheostomy and bedbound status. Continue trach care. Continue skin care. Anemia, no evidence of acute blood loss. Patient will likely require to have anemia workup to be done in the outpatient setting to be handled by PCP in collaboration with other needed outpatient providers. This may include but not limited to EGD, colonoscopy, referral to see hematology and other needed age-appropriate cancer screening. Chronic, subacute medical conditions not listed above, abnormal labs and imaging. These would need to be addressed. Could be addressed later on or in the outpatient setting by PCP collaboration with other needed outpatient providers when time and condition are appropriate.
--- NOTE | 2025-06-04 09:38 | CA_ITS ---
Patient Name: TERRY MERIDA MR#: [id number] : 1955 Exam Date: 06/04/2025 Ordering Doctor: LEONARD SMART ECHOCARDIOGRAM REPORT PROCEDURE: CA ECHO DOPPLER COMPLETE INDICATIONS: Syncope, trach, hypertension, diabetes COMPARISON: None. DESCRIPTION: COMPLETE ECHOCARDIOGRAM Real-time transthoracic echocardiography with 2D, M-mode, spectral and color flow Doppler performed. QUALITY: Technically difficult due to patient's condition. LEFT VENTRICLE: Normal chamber size. Normal left ventricular wall thickness. LV EF: Global left ventricular systolic function is hyperdynamic; visually estimated ejection fraction is 65 to 70%. No significant wall motion abnormalities. DIASTOLIC: Diastolic function cannot be determined. ATRIAL SEPTUM: Inadequately seen. LEFT ATRIUM: Mild dilatation. RIGHT ATRIUM: Normal chamber size. RIGHT VENTRICLE: Poorly seen; appears normal in size and systolic function. TRICUSPID VALVE: Normal mobility and thickness. No stenosis with no regurgitation. Unable to assess right-sided pressures due to lack of measurable tricuspid regurgitation. MITRAL VALVE: Normal mobility and thickness. No evidence of mitral valve stenosis. There is no mitral annular calcification. No mitral regurgitation. AORTIC VALVE: Normal trileaflet appearance. No visible sclerosis. Normal leaflet mobility. No evidence of aortic valve stenosis. No aortic regurgitation. AORTIC ROOT: Normal diameter and appearance. PULMONIC VALVE: Not well visualized. PERICARDIUM: No evidence of pericardial effusion. IVC: Unable to assess subcostal images due to feed tube placement. CONCLUSION: 1. Global left ventricular systolic function is hyperdynamic; visually estimated ejection fraction is 65 to 70% 2. Normal right ventricular size and systolic function 3. The left atrium is mildly dilated 4. No obvious significant valvular abnormalities 5. Technically challenging study; no subcostal images obtained Adult Echocardiography Procedure Report Left Ventricle LVEDD (3.7 - 5.6 cm): 4.61 cm LVESD (2.2 - 4.0 cm): 2.95 cm LVIVS thickness (0.6 - 1.2 cm): 0.96 cm LVPW thickness (0.5 - 1.0 cm): 0.92 cm e': 0.12 m/s E - e': 5.24 LVOT Max Gradient: 4.71 mm[Hg] LVOT Area (cm2): 1.09 m/s Peak Velocity (LVOT): 1.09 m/s Mean Velocity (LVOT): 0.60 m/s LVOT Diameter 2.48 cm Left Ventricular Ejection Fraction: 74.49 % Left Atrium LA Volume Index (2D A2C): 39.80 ml/m2 Left Atrium Systolic Dimension: 3.52 cm Mitral Valve MV E to A Ratio: 0.86 Mitral Valve A-Wave Peak Velocity: 0.72 m/s Mitral Valve E-Wave Peak Velocity: 0.62 m/s Right Ventricle Aorta AO Root Diam: 3.78 cm Aortic Valve AoV Area (Peak Georges): 3.82 cm2, 3.82 cm2 AoV Area (VTI): 5.57 cm2, 5.57 cm2 Peak Velocity(Antegrade Flow): 1.37 m/s Peak Gradient(Antegrade Flow): 7.52 mm[Hg] Mean Velocity(Antegrade Flow): 0.80 m/s Mean Gradient(Antegrade Flow): 3.18 mm[Hg] Velocity Time Integral: 19.34 cm Tricuspid Valve Pulmonic Valve Right Atrium Right Atrium Systolic Pressure: 33.36 ml, 33.36 ml Dictated by: Carlyn Brown M.D. on 06/04/2025 at 15:59 Approved by: Carlyn Brown M.D. on 06/04/2025 at 16:04
--- NOTE | 2025-06-04 09:58 | SWNOTE1 ---
Plan is for pt to be transferred to higher level of care. Pt has been to [facility] in past and plan is for tranfer there. SW did update Bee and Anitha at [facility]. HEMA faxed ED note, H&P, labs, and diagnostic imaging to Broderick at [facility] for continuity of care.
--- NOTE | 2025-06-04 09:59 | CM.NOTE ---
I placed a call to [facility] [phone] to request transfer to their facility for a general surgery consult. 's contact information was provided in case they have any further questions and they will notify us if they are able to accept the patient.
[2025-06-04] MEDS: SENNOSIDES/DOCUSATE SODIUM 1 TAB TABLET PEG (10:01)
[2025-06-04] MEDS: ASPIRIN 325 MG TABLET FEED TUBE (10:01)
[2025-06-04] MEDS: DEXAMETHASONE SOD PHOS 4 MG/ML VIAL IV ×2 (10:05→21:44)
[2025-06-04] MEDS: DEXTROSE 5%-0.9% NACL 1,000 ML 1,000 ML 100 ML IV (10:05)
[2025-06-04] MEDS: OXYCODONE HCL 5 MG TABLET 10 MG PEG ×2 (10:05→14:06)
--- NOTE | 2025-06-04 10:15 | CM.NOTE ---
Dr. Jones called CM back regarding changing pt's Peg tube, unavailable today or weekend.
--- NOTE | 2025-06-04 10:49 | W.PM.WC ---
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 Bedside RN currently providing care. Patient from extended care facility. History of work related injury that has led him to be bedbound. Overall his skin is intact. He does have pink, blanchable areas to his bilateral hips and left medial malleolus. Heels and elbows are intact. He does have an area on his scalp that is noted, loss of hair around lesion and is dry. Patient has a stage 4 pressure injury present on admission to his sacral region. Overall area is clean. No odor to drainage. There is undermining noted and soft, thick, yellow slough to proximal ridge of ulcer. See wound assessment for details. Assisted bedside RN with applying waffle mattress overlay to bed. Patient is to be transferred to [place] per bedside RN due to G-Tube needing replaced. If patient is to stay at [facility] would recommend [place] bed for him to assist in better off loading of sacral ulcer. Patient has Rooke boots in place for proper off loading of bilateral heels as well as wedges to keep feet in a more neutral position. Patient was repositioned to his right side after assessment. Photos in chart. Please call [phone] for any questions or concerns. Sukhdeep Hernandez RN, [facility] Wound Assessment Patient Status Premedicated Prior to Dressing Change: No Wound Sacrum: Wound Type: Pressure Injury Is This a Chronic Wound: Yes Wound Staging: Stage IV Length: 9.3 Width: 8.8 Depth: 2.5 Wound Bed Appearance: Beefy Red, Slough and Eschar Percentage Granulated: 90 Percentage Slough: 10 Wound Margins Description: Well Defined Undermining Position: 8:00-4:00 longest depth 2cm. Measurements are positional d/t ulcer location Surrounding Tissue Appearance: [place] (WNL) Surrounding Tissue Temperature: warm (WNL) Drainage Description: Serosanguineous Drainage Amount: Moderate Drainage Odor: No Odor Dressing Status: Changed Packing Type: Alginate Primary Dressing: Gauze Roll/Wrap Secondary Dressing: Absorbant Pad Were photos of the wound(s) taken and uploaded to the chart?: Yes Dressing Change Patient Tolerance: Tolerated Well
--- NOTE | 2025-06-04 11:32 | CM.NOTE ---
I placed another call to [facility] to follow up on the transfer request and they are still working on it. They will reach out to when a Physician becomes available.
--- NOTE | 2025-06-04 13:11 | CM.NOTE ---
I spoke with Dr Morrison and he has decided to keep the patient here at the [facility]. No transfer to [facility] at this time.
--- NOTE | 2025-06-04 13:26 | XR_ITS ---
[address] [address] Patient Name: TERRY MERIDA MRN: [id number] date: 1955 Sex: M Assigned Patient Location: [place] Current Patient Location: [place] Accession/Order Number: [id number] Exam Date: 06/04/2025 13:50 Report Date: 06/04/2025 14:11 At the request of: LEONARD SMART MD Procedure: XR abdomen 1V KUB: CLINICAL INFORMATION: PEG tube placement COMPARISON: None FINDINGS: Presumed contrast is injected into the patient's G-tube. There is opacification of the stomach without extravasation noted. No bowel obstruction or free air. XR/XR abdomen 1V IMPRESSION: CONTRAST IS SEEN FILLING THE PATIENT'S STOMACH WITHOUT CONTRAST EXTRAVASATION. NO ACUTE INTRA-ABDOMINAL PROCESS. Impression dictated by: Alejandro Saldana Jr., D.O. 06/04/2025 2:11 PM Dictation Location: [place] [address] Electronically authenticated by: [id number] Y Date: 06/04/2025 14:11
--- NOTE | 2025-06-04 13:26 | PC.NURSE ---
This RN in room assisting Dr. Morrison with replacing the PEG tube. Supplies brought from surgery nurses. Abd X-ray ordered to confirm placement per Dr. Morrison's orders. Primary nurse Nat Mckee RN made aware and updated.
[2025-06-04] MEDS: GABAPENTIN 300 MG CAPSULE PEG ×2 (14:06→21:44)
--- NOTE | 2025-06-04 15:05 | SWNOTE1 ---
SW stopped in to see pt, pt sleeping. Pt's brother in law in room. HEMA asked how he was doing at [facility]. He voiced it is alright. HEMA did ask if the plan is to return, he voiced yes as of now. His daughter, Lala is the POA. They all try to be there to support and be there for pt. SW to call Lala to review the SMITH form. She is a teacher, so SW to try later this afternoon. At this time pt's brother in law had no concerns.
[2025-06-04] MEDS: INSULIN ASPART 300 UNIT/3 ML PEN SUBQ ×2 (15:54→21:44)
--- NOTE | 2025-06-04 17:25 | DIETREC ---
TF recommendation: Jevity 1.5 formula @ 65 mL/hour (goal rate) continuous feed via PEG to provide 2340 kcal, 100 gm PO, and 1186 mL free water in 1560 mL TV. Start @ 30 mL/hour and increase by 10 mL/hour q6 hours as tolerated until goal rate is reached. Provide 100 mL water flushes q4 hours for an additional 600 mL fluid q24 hours. Also recommend 30 mL PRO-stat BID via PEG. Please contact Dietitian at [phone] with any questions or concerns.
[2025-06-04] MEDS: ENOXAPARIN SODIUM 80 MG/0.8 ML SYRINGE SUBQ (20:09)
[2025-06-04] MEDS: JEVITY 1.5 CAL 237 ML LIQUID FEED TUBE ×2 (20:09→22:40)
[2025-06-04] MEDS: ATORVASTATIN CALCIUM 40 MG TABLET PEG (21:44)
[2025-06-04] MEDS: OXYCODONE HCL 5 MG TABLET PO (22:39)
[2025-06-05] VITALS (10 sets, daily range): BP systolic 144–150; BP diastolic 64–65; PULSE 57–67; TEMP 36.4–37.3; O2SAT 95–98
[2025-06-05] MEDS: ACETAMINOPHEN 325 MG TABLET 650 MG PEG (02:18)
[2025-06-05] MEDS: INSULIN GLARGINE 300 UNIT/3 ML INSULN.PEN 25 UNIT SQ (02:19)
[2025-06-05] MEDS: METOPROLOL TARTRATE 25 MG TABLET 12.5 MG PEG ×2 (02:19→08:08)
[2025-06-05] MEDS: JEVITY 1.5 CAL 237 ML LIQUID FEED TUBE ×3 (02:19→08:06)
[2025-06-05] MEDS: INSULIN ASPART 300 UNIT/3 ML PEN SUBQ ×2 (02:20→08:16)
[2025-06-05 04:08] LABS: Vitamin B12 841 pg/mL (232-1245)
[2025-06-05] MEDS: HYDROMORPHONE HCL 1 MG/ML CARTRIDGE 0.5 MG IVP (04:44)
[2025-06-05] MEDS: GABAPENTIN 300 MG CAPSULE PEG (06:00)
[2025-06-05 06:55] LABS: Hematocrit 26.0 % (42.0-54.0); Hemoglobin 8.0 g/dL (14.0-18.0); Mean Corpuscular HGB Conc 30.8 g/dL (29.9-35.2); Mean Corpuscular Hemoglobin 27.1 pg (25.9-34.0); Mean Corpuscular Volume 88.1 fL (80.0-94.0); Platelet Count 324 10^3/uL (150-450); Red Blood Count 2.95 10^6/uL (4.70-6.10); White Blood Count 14.1 10^3/uL (4.0-11.0)
[2025-06-05 07:09] LABS: Alanine Aminotransferase 26 U/L (16-63); Albumin Globulin Ratio 0.6; Albumin Level 2.0 g/dL (3.4-5.0); Alkaline Phosphatase 100 U/L (46-116); Anion Gap 8.7; Aspartate Amino Transferase 12 U/L (15-37); Blood Urea Nitrogen 12.0 mg/dL (7.0-18.0); Calcium 9.2 mg/dL (8.5-10.1); Carbon Dioxide 31.5 mmol/L (21.0-32.0); Chloride 101 mmol/L (98-107); Estimated GFR (African America >60 (>=60 mL/min/1.73m^2); Estimated GFR (Non-African Ame >60 (>=60 mL/min/1.73m^2); Globulin 3.4 g/dL; Glucose 279 mg/dL (74-106); Potassium 4.2 mmol/L (3.5-5.1); Sodium 137 mmol/L (136-145); Total Protein 5.4 g/dL (6.4-8.2)
[2025-06-05] MEDS: ASPIRIN 325 MG TABLET FEED TUBE (08:06)
[2025-06-05] MEDS: ENOXAPARIN SODIUM 80 MG/0.8 ML SYRINGE SUBQ (08:06)
[2025-06-05] MEDS: HYDROMORPHONE HCL 0.5 MG/0.5 ML SYRINGE IVP (08:07)
[2025-06-05] MEDS: SENNOSIDES/DOCUSATE SODIUM 1 TAB TABLET PEG (08:08)
[2025-06-05] MEDS: DIGOXIN 500 MCG/2 ML AMPUL 125 MCG IV (08:08)
--- NOTE | 2025-06-05 09:32 | PM.EN ---
Event Note Event Note: On 06/04 I called [facility] requesting to transfer pt there for Peg tube exchange. I spoke with surgeon bonding equipment operator. He stated that he will be glad to take him but requested to attempt to exchange peg at [place]. I informed him that I dont have GI or G surgery to perform. He stated it is simple and routinely done at the bed side. At the bedside, I was able to remove the old lacerated Peg. I inserted a new Peg with guidewire in the same track. Guidewire was subsequently removed. I inflated the balloon. I sutured peg in place. Ordered Xary with gastrograffin. Peg in place without extravasation of contrast.
[2025-06-05] MEDS: OXYCODONE HCL 5 MG TABLET PO (10:27)
[2025-06-05] MEDS: DEXAMETHASONE SOD PHOS 4 MG/ML VIAL IV (10:28)
--- NOTE | 2025-06-05 11:32 | P.DS_ITS ---
DS: Providers Provider Date of admission: 06/04/25 03:35 Primary care physician: CHANEL JOHNSON Consults: 06/04/25 09:18 Consult to Dietitian Routine Reason for consultation: recommend and order tube feed 06/04/25 09:32 Consult to Wound Care Routine Consulting Provider: Sukhdeep Hernandez Reason for consultation: Sacral ulcer DS: Diagnosis Discharge Diagnosis (1) Altered mental status: Plan Brief altered mental status. No specific problem was found to be going on. Patient is appropriate to return to his care facility. DS: Summary Hospital Course Hospital Course: This is a 70-year-old person who resides at a long-term care facility due to a crush injury in the past the left and bedbound. He has a tracheostomy. He has a PEG tube. He is unable to stand and ambulate. He has chronic pain. He was sent to the [facility] because he was reported to be unresponsive. Nurses at the care facility tried to wake him up but could not get him to open his eyes or communicate. By the time EMS got to him or here he had reportedly regained consciousness. In the emergency room nothing acute was found to be wrong. CT scan of the head was negative for acute intracranial process. CTA of the head neck arterial system was negative for any large vessel occlusion. It is possible that the patient was overmedicated with pain medications. The patient was monitored with telemetry monitoring. An incidental finding was that the PEG tube had been found to be sliced in the middle. This was replaced by the hospitalist taking care of him, Dr. Ashley Morrison. The patient was provided tube feeding and then medications through the new PEG tube and this was working well. The patient has diabetes and this can be monitored her with insulin and sliding scale insulin. The patient has a tracheostomy in the care of this area was found to be appropriate. Family members reported at the nursing home facility that there was some constipation but the patient was started on Senokot here and with this he had so ft bowel movements without runny diarrhea and without hard fecal impaction. Otherwise with nothing acute being found to be going on the patient was found to be suitable for discharge back to his care facility. It is my recommendation that the care facility work on de-prescribing some of his medications. He is on a very long list of medications, and I think in the long run his medication regimen could be gently reduced and streamlined. Status at Discharge Overall status at discharge: patient is progressing back to baseline Time Spent with Patient Time attestation: Total time spent providing and/or coordinating discharge services: Time spent: greater than 30 minutes Exam Narrative Exam Narrative: General: Awake. Able to look around. Answers my questions with some facial responses. Pulmonary: Clear to auscultation throughout. No wheezing. No rhonchi. Neck: Tracheostomy site is good. Clean. Well-dressed. Cardiac: Regular rate and rhythm. No murmurs or rubs or gallops to auscultation. GI: Abdomen soft, nontender, normal palpation to abdomen all over. Normal bowel sounds to auscultation. PEG site: This is excellent. Held in place with 2 small sutures. These should be removed in about 5 days. No drainage. PEG tube is appropriately positioned. No surrounding cellulitis. : Soto catheter is draining urine. Skin/wound: With the nurse changing the bandage I did evaluate the wound. There is no cellulitis around it. There is an area of 10 tissue in the 12:00 to 2 o'clock position which could be debrided by wound care nurses at his nursing home facility ([facility]) Lower extremities: Cachectic and with muscle loss from bedbound status. No edema. Constitutional Vital Signs, click to edit/add: Last Vital Signs Temp 98.3 F 06/05/25 08:22 Pulse 58 L 06/05/25 09:57 Resp 18 06/05/25 08:22 BP 144/65 H 06/05/25 08:22 Pulse Ox 98 06/05/25 09:57 O2 Del Method Trach Collar 06/05/25 08:22 O2 Flow Rate 8 06/05/25 08:22 FiO2 35 06/05/25 05:40 DS: Data Data Completed and Pending Labs on day of discharge: Labs from last 24 hours 06/05/25 06/05/25 06/05/25 08:13 06:11 02:17 WBC 14.1 H RBC 2.95 L Hgb 8.0 L Hct 26.0 L MCV 88.1 MCH 27.1 MCHC 30.8 RDW 15.5 H Plt Count 324 MPV 10.1 Sodium 137 Potassium 4.2 Chloride 101 Carbon Dioxide 31.5 Anion Gap 8.7 BUN 12.0 Creatinine 0.54 L Est GFR ( Amer) >60 Est GFR (Non-Af Amer) >60 BUN/Creatinine Ratio 22.2 Glucose 279 H Calcium 9.2 Total Bilirubin 0.3 AST 12 L ALT 26 Alkaline Phosphatase 100 Total Protein 5.4 L Albumin 2.0 L Globulin 3.4 Albumin/Globulin Ratio 0.6 Vitamin B12 POC Glucose 294 H 225 H 06/04/25 06/04/25 06/04/25 20:34 14:34 05:35 WBC RBC Hgb Hct MCV MCH MCHC RDW Plt Count MPV Sodium Potassium Chloride Carbon Dioxide Anion Gap BUN Creatinine Est GFR ( Amer) Est GFR (Non-Af Amer) BUN/Creatinine Ratio Glucose Calcium Total Bilirubin AST ALT Alkaline Phosphatase Total Protein Albumin Globulin Albumin/Globulin Ratio Vitamin B12 841 POC Glucose 203 H 223 H Discharge Plan Discharge Disposition: Xfer SNF Condition: Good Discharge Medications: New sennosides-docusate sodium 8.6-50 mg Tablet 1 tab PEG tube QD Qty: 0 0RF Glucagon Emergency Kit (human) 1 mg Recon Soln 1 mg IM Q15M PRN (Reason: Hypoglycemia) Qty: 0 0RF Continued acetaminophen 325 mg capsule 650 mg PO Q6H PRN (Reason: fever or pain) Patient Comments: G-Tube acidophilus-pectin, citrus [Probiotic Acidophilus-Pectin] 100 million cell-10 mg capsule 1 cap PO TID Patient Comments: G-tube apixaban 5 mg tablet 5 mg PO BID aspirin 81 mg capsule 81 mg PO DAILY atorvastatin 40 mg tablet 40 mg PO DAILY bethanechol chloride 5 mg tablet 5 mg PO TID buspirone 5 mg tablet 5 mg PO BID ciprofloxacin HCl [Cipro] 500 mg tablet 500 mg PO Q12H docusate sodium [Colace] 100 mg capsule 100 mg PO BID digoxin [Digitek] 250 mcg (0.25 mg) tablet 250 mcg PO DAILY furosemide 40 mg tablet 40 mg PO BID gabapentin 600 mg tablet 600 mg PO TID hydroxyzine HCl 25 mg tablet 25 mg PO Q6H PRN (Reason: anxiety) insulin glargine [Basaglar KwikPen U-100 Insulin] 100 unit/mL (3 mL) insulin pen 26 unit subcut DAILY insulin lispro 100 unit/mL insulin pen 1 sliding scale dose subcut USEASDIRECTD ipratropium-albuterol 0.5 mg-3 mg(2.5 mg base)/3 mL solution for nebulization 3 ml inhalation QID PRN (Reason: wheezing) Kyle (with collagen) 7-7-1.5 gram powder in packet 1 packet PO DAILY Rx Instructions: mix 1 packet with 8-10 oz liquid lidocaine [Lidocaine Pain Relief] 4 % adhesive patch,medicated 1 patch topical DAILY PRN (Reason: pain) loperamide [Imodium A-D] 2 mg capsule 2 mg PO QID PRN (Reason: loose stool) melatonin 3 mg capsule 3 mg PO HS PRN (Reason: sleep) metoprolol tartrate 25 mg tablet 25 mg PO Q12H omeprazole 20 mg capsule,delayed release(DR/EC) 40 mg PO DAILY ondansetron HCl 4 mg tablet 4 mg PO TID-QID PRN (Reason: nausea and vomiting) oxycodone 10 mg tablet 20 mg PO Q4H polyethylene glycol 3350 [ClearLax] 17 gram/dose powder 17 g PO DAILY prednisone 20 mg tablet 10 mg PO DAILY cholestyramine (with sugar) [Questran] 4 gram powder 1 ea PO .QD silodosin [Rapaflo] 8 mg capsule 8 mg PO DAILY Rx Instructions: must administer with a meal/food tizanidine 4 mg capsule 4 mg PO Q12H PRN (Reason: muscle spasticity) trazodone 100 mg tablet 100 mg PO DAILY cholecalciferol (vitamin D3) 25 mcg (1,000 unit) capsule 25 mcg PO DAILY Print Language: Welsh Forms: Portal Instructions
== END 2025-06-05 13:10 ==
LOC: ER 06-04 02:51 → MS 06-04 03:42
PROVIDERS: Admitting Provider Internal Medicine; Emergency Provider Internal Medicine; PCP Family Medicine; Visit Provider Internal Medicine
DX: R41.82 Altered mental status, unspecified (principal); Z79.01 Long term (current) use of anticoagulants; Z93.0 Tracheostomy status; Z74.01 Bed confinement status; G82.20 Paraplegia, unspecified; E11.9 Type 2 diabetes mellitus without complications; D64.9 Anemia, unspecified; L89.154 Pressure ulcer of sacral region, stage 4; G89.29 Other chronic pain; K59.00 Constipation, unspecified; R64 Cachexia; Z68.25 Body mass index [BMI] 25.0-25.9, adult; Z79.4 Long term (current) use of insulin; K94.23 Gastrostomy malfunction
CPT/HCPCS: 36415; 70450; 70496; 70498; 71045; 74018; 80048; 80053; 81001; 82607; 82728; 82948; 83540; 83550; 84484; 85025; 85027; 93005; 93306; 94761; 96361; 96372; 96374; 96375; 96376; 99285; G0378; J1100; J1160; J1171; J1650; Q9963; Q9967